=== PATIENT | male | born 1935 | race Caucasian/White ===

== ENCOUNTER 2017-07-27 20:26 | Inpatient (IN) | payer MEDICARE ==
--- NOTE | 2017-07-27 21:04 | ED Physician Chart ---
ED Chief Complaint/HPI - Patient Information Date Seen:: 07/27/17 Time Seen:: 20:15 Chief Complaint:: Agitation History of Present Illness:: onset x 3 days of agitation and hostile behavior; no report of SIs, trauma, H/As , neck pain, C/P, SOB, cough, S/T, Abd. Pain, A/N/V/D/C, fever, chills, or urinary s/s Allergies:: Allergies Allergy/AdvReac Type Severity Reaction Status Date / Time No Known Allergies Allergy Verified 07/27/17 20:53 Vitals:: Vital Signs - 8 hr 07/27/17 20:40 Temp 98.2 F HR 84 RR 18 BP 126/84 Historian:: Patient, Family Member Review:: Nurse's Note Reviewed ED Review of Systems - Review of Systems General/Constitutional: No fever, No chills, No weight loss, No weakness, No diaphoresis, No edema, No loss of appetite Skin: No skin lesions, No rash, No bruising Head: No headache, No light-headedness Eyes: No loss of vision, No pain, No diplopia ENT: No earache, No nasal drainage, No sore throat, No tinnitus Neck: No neck pain, No swelling, No thyromegaly, No stiffness, No mass noted Cardio Vascular: No chest pain, No palpitations, No PND, No orthopnea, No edema Pulmonary: No SOB, No cough, No sputum, No wheezing GI: No nausea, No vomiting, No diarrhea, No pain, No melena, No hematochezia, No constipation, No hematemesis G/U: No dysuria, No frequency, No hematuria, No nacturia Musculoskeletal: No bone or joint pain, No back pain, No muscle pain Endocrine: No polyuria, No polydipsia Psychiatric: No prior psych history, No depression, No anxiety, No suicidal ideation, No homicidal ideation, No auditory hallucination, No visual hallucination Hematopoietic: No bruising, No lymphadenopathy Allergic/Immuno: No urticaria, No angioedema Neurological: No syncope, No focal symptoms, No weakness, No paresthesia, No headache, No seizure, No dizziness, No confusion, No vertigo ED Past Medical History - Past Medical History Obtainable: Yes Past Medical History: HTN, Asthma/COPD Family History: HTN Social History: Non Smoker, No Alcohol, No Drug Use, , Care Facility Surgical History: None Psychiatricy History: None Medication: Reviewed ED Physical Exam - Physical Examination General/Constitutional: Awake, Well-developed, well-nourished, Alert, No distress, GCS 15, Non-toxic appearing, Ambulatory Head: Atraumatic Eyes: Lids, conjuctiva normal, PERRL, EOMI Skin: Nl inspection, No rash, No skin lesions, No ecchymosis, Well hydrated, No lymphadenopathy ENMT: External ears, nose nl, TM canals nl, Nasal exam nl, Lips, teeth, gums nl , Oropharynx nl, Tonsils nl Neck: Nontender, Full ROM w/o pain, No JVD, No nuchal rigidity, No bruit, No mass, No stridor Respiratory: Nl effort/Exclusion, Clear to Auscultation, No Wheeze/Rhonchi/Rales Cardio Vascular: RRR, No murmur, gallop, rubs, NL S1 S2, Carotid/Femoral/Distal pulses equal bilaterally GI: No tenderness/rebounding/guarding, No organomegaly, No hernia, Normal BS's, Nondistended, No mass/bruits, No McBurney tenderness : No CVA tenderness Extremities: No tenderness or effusion, Full ROM, normal strength in all extremities, No edema, Normal digits & nails Neuro/Psych: Alert/oriented, DTR's symmetric, Normal sensory exam, Normal motor strength, Judgement/insight normal, Mood normal, Normal gait, No focal deficits Other Neuro/Psych comments:: + Psychomotor Agitation; no SIs; Mood/Affect: Labile Misc: Normal back, No paraspinal tenderness ED Septic Shock - . Is Septic Shock (SBP<90, OR Lactate>4 mmol\L) present?: No - <6hrs of presentation: Vital Signs: Vital Signs - 8 hr 07/27/17 20:40 Temp 98.2 F HR 84 RR 18 BP 126/84 ED Reassessment (Disposition) - Diagnosis Diagnosis:: Dx: Agitation; Anxiety; Medical Clearance
[2017-07-27 21:31] LABS: EOSINOPHILE ABSOLUTE 0.1 Th/cmm (0.1-0.4); LYMPHOCYTE ABSOLUTE 1.5 Th/cmm (1.5-3.0); MONOCYTE ABSOLUTE 0.4 Th/cmm (0.3-1.0)
[2017-07-27 21:33] LABS: % BASOPHILS 0.2 % (0.0-2.0); % LYMPHOCYTES 18.6 % (20.0-50.0); % MONOCYTES 5.4 % (2.0-10.0); % NEUTROPHILS 74.8 % (40.0-80.0); HEMATOCRIT 38.3 % (41.0-60); HEMOGLOBIN 13.2 gm/dL (12-16); MEAN CORPUSCULAR HEMOGLOBIN 31.8 pg (27.0-31.0); MEAN CORPUSCULAR HGB CONC 34.6 pg (28.0-36.0); MEAN PLATELET VOLUME 6.9 fl; NEUTROPHILE ABSOLUTE 6.1 Th/cmm (1.8-8.0); PLATELET COUNT 205 Th/cmm (150-400); RED BLOOD COUNT 4.16 Mil/cmm (3.80-5.80); RED CELL DISTRIBUTION WIDTH 12.6 % (11.5-20.0); WHITE BLOOD COUNT 8.1 Th/cmm (4.8-10.8)
[2017-07-27 21:47] LABS: ALB/GLOB RATIO 1.1 (1.0-1.8); ALBUMIN 4.1 gm/dL (4.2-5.5); ALKALINE PHOSPHATASE 94 U/L (34-104); ANION GAP 9.9 (7.0-16.0); BILIRUBIN,TOTAL 0.4 mg/dL (0.3-1.0); BUN - UREA NITROGEN 22 mg/dL (7-25); CALCIUM SERUM 9.2 mg/dL (8.6-10.3); CARBON DIOXIDE 24.9 mEq/L (21.0-31.0); CHLORIDE 107 mEq/L (98-107); CHOLESTEROL 157 mg/dL (<200); CREATININE - SERUM 1.3 mg/dL (0.7-1.3); GLUCOSE 93 mg/dL (70-105); HDL -HIGH DENSITY LIPOPROTEIN 39 mg/dL (23-92); POTASSIUM SERUM 3.8 mEq/L (3.5-5.1); SGOT 14 U/L (13-39); SGPT/ALT 9 U/L (7-52); SODIUM SERUM 138 mEq/L (136-145); TOTAL PROTEIN,SERUM 7.8 gm/dL (6.0-8.3); TRIGLYCERIDES 117 mg/dL (<150)
[2017-07-27 22:00] LABS: ACETAMINOPHEN < 10.0 ug/mL (10.0-30.0); SALICYLATES (ASPIRIN) < 25.0 mg/L (30.0-100.0)
[2017-07-27 22:04] LABS: URINE MICROSCOPIC INDICATED? YES; URINE SOURCE CLEAN C
[2017-07-27 22:08] LABS: URINE BILIRUBIN NEGATIVE (NEGATIVE); URINE BLOOD TRACE (NEGATIVE); URINE GLUCOSE (UA) NEGATIVE (NEGATIVE); URINE KETONE NEGATIVE (NEGATIVE); URINE LEUKOCYTE ESTERASE NEGATIVE (NEGATIVE); URINE NITRATE NEGATIVE (NEGATIVE); URINE PROTEIN 30 mg/dL (NEGATIVE); URINE UROBILINOGEN 0.2 E.U./dL (0.2 - 1.0)
[2017-07-27 22:21] LABS: URINE COLOR YELLOW
[2017-07-27 22:22] LABS: URINE CLARITY CLEAR (CLEAR)
[2017-07-27 22:23] LABS: URINE BACTERIA NONE SEEN /hpf (NONE SEEN); URINE EPITHELIAL CELLS OCCASIONAL /lpf (FEW); URINE RBC 0-2 /hpf (0-5); URINE WBC 0-2 /hpf (0-5)
[2017-07-27 23:04] LABS: AMPHETAMINE URINE NEGATIVE (NEGATIVE); BARBITURATES URINE NEGATIVE (NEGATIVE); BENZODIAZEPINES QUAL URINE NEGATIVE (NEGATIVE); CANNABINOID THC NEGATIVE (NEGATIVE); COCAINE METABOLITE QUAL URINE NEGATIVE (NEGATIVE); METHADONE URINE NEGATIVE (NEGATIVE); METHAMPHETAMINES QUAL URINE NEGATIVE (NEGATIVE); OPIATES (MORPHINE) QUAL. URINE NEGATIVE (NEGATIVE); PHENCYCLIDINE (PCP) URINE NEGATIVE (NEGATIVE); TRICYCLICS (TCA) QUAL. URINE NEGATIVE (NEGATIVE)
[2017-07-28] MEDS ORDERED: Magnesium Hydroxide (MOM) 30 mL UDC PO PRN (10:37)
[2017-07-28] MEDS ORDERED: Maalox 30 mL Cup PO PRN (10:37)
[2017-07-28] MEDS ORDERED: Albuterol/Ipratropium Neb 3 ML AERS HHN PRN (10:54)
--- NOTE | 2017-07-28 12:46 | History & Physical ---
ADMIT DATE: 07/28/2017 CHIEF COMPLAINT: "I don't have any medical problem." HISTORY OF PRESENT ILLNESS: The patient was seen by Emergency Room ON 07/27/2017 for evaluation of agitation and hostile behavior. After being evaluated, the patient was advised to be admitted at Geropsych Unit. The patient is under care of Dr. Daley. I have been asked this patient to manage medical problems. PAST MEDICAL HISTORY: Remarkable for: 1. Hypertension. 2. DJD. 3. Asthma. 4. Obesity. MEDICATIONS AT HOME: Unknown. ALLERGIES: The patient is not allergic to medications. SOCIAL HISTORY: The patient lives by himself. The patient has no history of smoking cigarette, drinking alcohol, or using street drug use. FAMILY MEDICAL HISTORY: Remarkable for hypertension. REVIEW OF SYSTEMS: The patient currently denies any headache, blurred vision, double vision, dysphagia, odynophagia, runny nose, stuffy nose, fever, chills, cough, chest pain, shortness of breath, palpitation, dizziness, nausea, vomiting, diarrhea, dysuria, hematuria, hematochezia, melena. No seizure or syncopal episode. PHYSICAL EXAMINATION: GENERAL: The patient is alert, awake, oriented, lying in the bed without any acute distress. VITAL SIGNS: Temperature 98.2, pulse 84, respiratory rate 18, blood pressure 126/84. SKIN: Warm to touch. Adequate skin turgor. No petechia, no purpura. HEENT: Normocephalic, atraumatic. Extraocular muscles are intact. Tongue was pink and coated. Poor dentition noted. No oral lesion, no exudate. No sinus tenderness. External auditory canal and tympanic membranes are well visualized. NECK: Supple, no JVD. No hepatojugular reflex. No lymphadenopathy, thyromegaly, or carotid bruit. HEART: Both heart sounds are regular. No S3, no S4, no murmur. CHEST AND LUNGS: Equal in expansion, no wheezing, no crackles. ABDOMEN: Soft. No guarding, no rigidity. Liver and spleen not palpable. No palpable mass. EXTREMITIES: No edema, no cyanosis or clubbing. Peripheral pulses are +2. No calf tenderness noted. Diffuse osteoarthritic changes noted. NEUROLOGIC: Alert, awake, oriented to time, place, person. 2-12 cranial nerves are intact. Power in upper and lower extremities 5+. Sensation to touch intact. Babinskis in both toes are going down. No cerebral sign. AVAILABLE DIAGNOSTIC DATA: White count of 8.1, hemoglobin 13.2, platelet count 202. Chemistry panels are within normal limit. Liver functions are normal. Cholesterols are within normal limit. Albumin of 4.1. Urinalysis has a 30+ protein, RBCs were 0-2, salicylate drug screen was unremarkable. CLINICAL IMPRESSION: 1. Psychotic disorder exacerbation. 2. Hypertension. 3. Asthma. 4. Degenerative joint disease. 5. Proteinuria. 6. Obesity. PLAN: The patient's blood pressure remaining normal. We will monitor the blood pressure and blood pressure starts climbing up, we will resume antihypertensive medication. Continue to provide albuterol inhaler as needed for asthma. The patient will have repeat urinalysis and we will decide if patient needs to be further evaluation. If persistent proteinuria, the patient will require further workup. The patient's psychiatric evaluation and management has been deferred to psychiatrist. The patient is medically stable to participate in the activity per the Geropsych Unit. I sincerely thank you, Dr. Augustina Daley for giving me the opportunity to participate in patient of yours. JOB# [id number]
[2017-07-28 17:51] LABS: A1C % 5.3 % (4.0-6.0)
--- NOTE | 2017-07-29 02:12 | Psychosocial Evaluation ---
DATE OF SERVICE: PSYCHIATRIC INITIAL EVALUATION AGE: 81. SEX: Male. PHYSICIAN: Edi. CHIEF COMPLAINT: Agitation and hostile behavior. HISTORY OF PRESENT ILLNESS: The patient is an 81-year-old male, who has been agitated for the last 3 days. The patient has been restless and has been in irritable mood. The patient also has been not able to follow directions. Also, has been severely anxious. The patient was transferred to the hospital. The patient is still agitated, restless and he is unable to follow directions. PAST PSYCHIATRIC HISTORY: No known history of psychiatric problems. PAST MEDICAL HISTORY: No known major medical problems. SOCIAL HISTORY: No known alcohol or drug use. ALLERGIES: No known allergies. MENTAL STATUS EXAMINATION: The patient appears his stated age. Anxious. Irritable mood. Seems to be confused. Difficulty following directions. The patient denies hallucinations or delusions, but seems to be preoccupied. The patient denies suicidal or homicidal ideations. The patient is alert and oriented to situation and place. The patient is still unable to assess his memory at this time. Poor insight and poor judgment. ASSESSMENT: PRIMARY DIAGNOSIS: Unspecified psychosis. TREATMENT PLAN: We will monitor the patient's behavior and condition closely. Also, we will work on his irritability and agitation. Also, we will work on ineffective coping. ESTIMATED LENGTH OF STAY: 5-7 days. THE PATIENT'S STRENGTHS AND WEAKNESSES: The patient seems to be in relatively fair health. Weaknesses is his ineffective coping and his agitation. AFTER DISCHARGE PLAN: Outpatient treatment and followup. CRITERIA FOR DISCHARGE: The patient will not be psychotic and will stabilize psychotropic medications and will establish discharge plans. JOB# [id number]
[2017-07-29] MEDS: Multivitamin Tab PO SCH (08:55)
--- NOTE | 2017-07-29 23:24 | Progress Notes ---
DATE: SUBJECTIVE: The patient is still confused and disoriented. The patient also still thinks that his car is around the unit and going looking for, wants to look for his car. The patient also had a visit from his daughter last night asking his daughter to go home in a confused state. He is still disoriented, and he is still unable to make any safe plan for self-care. Also, he still had periods of agitation. ASSESSMENT: The patient is still confused. TREATMENT PLAN: Continue to monitor his behavior and his condition closely. Also, we will start Seroquel in a dose of 12.5 mg twice a day. Also, we will work on his confusion. JOB# [id number]
--- NOTE | 2017-07-30 00:01 | Progress Notes ---
DATE: SUBJECTIVE: The patient seen and examined. The patient denies any chest pain, shortness of breath, palpitation, dizziness, nausea, vomiting. PHYSICAL EXAMINATION: VITAL SIGNS: See nurse's note. HEENT: Poor dentition. NECK: Supple, no JVD. HEART: Regular, no murmur. CHEST AND LUNG: Equal in expansion, no wheezing, no crackles. ABDOMEN: Soft. No guarding, no rigidity. Bowel sounds are present. No palpable mass. EXTREMITIES: No edema. CLINICAL IMPRESSION: 1. Psychiatric disorder exacerbation. 2. Proteinuria. 3. Hypertension. 4. Degenerative joint disease. 5. Obesity. PLAN: Repeat urinalysis has been requested, which is currently pending. The patient to monitor the blood pressure along with behavior. Continue to provide symptoms management as well as medication management. We will continue to follow this patient during his stay in the hospital. [facility]# [id number]
[2017-07-30] MEDS: Multivitamin Tab PO SCH (09:24)
--- NOTE | 2017-07-30 21:02 | Progress Notes ---
DATE: SUBJECTIVE: Chart reviewed and the patient interviewed. Also discussed the patient's condition with the staff and reviewed the records and labs. The patient is still in angry and in irritable mood and he is selectively mute. The patient also is still easily agitated and he is still responding to stimuli. The patient also wants to be left alone. He is also easily agitated and irritable. Also, personal hygiene is still poor. ASSESSMENT: The patient is still agitated and confused. TREATMENT PLAN: Continue to monitor his behavior and his condition closely. Also, continue Seroquel 12.5 mg twice a day and continue adjusting psychotropic medications and followup. JOB# [id number]
[2017-07-31] MEDS: Multivitamin Tab PO SCH (10:09)
--- NOTE | 2017-07-31 19:36 | Progress Notes ---
DATE: Chart reviewed and the patient interviewed. Also discussed the patient's condition with the staff and reviewed the records and labs. The patient is still guarded and withdrawn. The patient also is still depressed. The patient also is selectively mute and still had minimal interaction with others. Otherwise, the patient is compliant with taking his medications with no side effects of Seroquel. ASSESSMENT: The patient is still depressed. TREATMENT PLAN: Continue Seroquel same dose. Also, continue adjusting psychotropic medications and working on behavioral modification. JOB# [id number]
[2017-08-01] MEDS: Multivitamin Tab PO SCH (09:38)
--- NOTE | 2017-08-01 23:33 | Progress Notes ---
DATE: PATIENT'S IDENTIFICATION: An 81-year-old male. SUBJECTIVE: The patient is seen and examined. The patient is lying in the bed. On further questioning, patient denies any chest pain, shortness of breath, palpitation, dizziness, nausea, vomiting, diarrhea. The patient is ambulatory. OBJECTIVE: On exam, VITAL SIGNS: See nurse's note. HEENT: No facial asymmetry. NECK: Supple. No JVD. HEART: Regular. CHEST AND LUNG: Equal in expansion, no wheezing, no crackles. ABDOMEN: Soft. No guarding, no rigidity. Bowel sounds present. No palpable mass. EXTREMITIES: No edema. CLINICAL IMPRESSION: 1. Hypertension. 2. Bronchial asthma. 3. Degenerative joint disease. 4. Proteinuria. 5. Obesity. 6. Psychotic disorder. PLAN: 1. The patient continues to remain normotensive. We will not receive any antihypertensive medication for now. 2. Continue p.r.n. inhalation therapy. 3. Psych medication and psych followup. 4. Repeat urinalysis is still pending. 5. Nutritional support. 6. General nursing care. 7. We will continue to follow this patient. JOB# [id number]
--- NOTE | 2017-08-02 03:37 | Progress Notes ---
DATE: 08/01/2017 Case was discussed with staff of the patient, reviewed records. The patient is an 81-year-old male who was admitted on 07/27/2017 with history of psychotic behavior, unpredictable, impulsive, needing redirection. Continues to have poor insight. Continues to be irritable. No side effects with the medication, no sedation, no nausea. The patient apparently has been restless, irritable, unable to give information regarding previous history with psychotic problem. No major problems. The patient has been compliant with the medication with no side effects, no sedation, no nausea. We will continue to work with the patient in group therapy, milieu therapy, and adjust the medication as needed. JOB# [id number]
[2017-08-02] MEDS: Multivitamin Tab PO SCH (08:35)
--- NOTE | 2017-08-02 23:24 | Progress Notes ---
DATE: 08/02/2017 SUBJECTIVE: The patient is seen and examined. The patient is lying in the bed. The patient denies any chest pain, shortness of breath, palpitation, dizziness, nausea, vomiting, diarrhea. OBJECTIVE: On exam, VITAL SIGNS: Temperature 98, pulse is 64, respiratory rate 18, blood pressure 143/84. HEENT: Tongue is pink and coated. No facial asymmetry. Extraocular muscles are intact. NECK: Supple, no lymphadenopathy or thyromegaly. HEART: Regular, no murmur. CHEST AND LUNG: Equal in expansion, no expiratory wheezing. ABDOMEN: Soft. No guarding, no rigidity. Bowel sounds are present. No palpable mass. EXTREMITIES: No edema. NEUROLOGIC: Nonfocal. CLINICAL IMPRESSION: 1. Hypertension. 2. History of asthma. 3. Degenerative joint disease. 4. Psychotic disorder. 5. High risk for fall. PLAN: Continue to follow. Monitor blood pressure. Continue to provide p.r.n. inhalation therapy. Psychiatric medication and management deferred to psychiatrist. The patient's symptoms management along with medication management, general nursing care, nutritional support. Care plan reviewed. JOB# [id number]
--- NOTE | 2017-08-03 00:46 | Progress Notes ---
DATE: 08/02/2017 Case was discussed with staff of the patient, reviewed records. The patient continues to be guarded, withdrawn. The patient is to be depressed, continues to be selectively mute at times, poor interaction with other. He continues to be depressed. He is compliant with the medication with no side effects, no sedation, no nausea, no extrapyramidal symptoms. He is on Seroquel 12.5 mg twice a day and with no side effects. We will continue to work with the patient in group therapy, milieu therapy, and adjust the medication as needed. JOB# [id number]
[2017-08-03] MEDS: Multivitamin Tab PO SCH (08:28)
[2017-08-04] MEDS: Multivitamin Tab PO SCH (10:06)
--- NOTE | 2017-08-04 10:15 | Progress Notes ---
DATE: 08/03/2017 SUBJECTIVE: Chart reviewed and the patient interviewed. Also, discussed the patient's condition with the staff and reviewed records and labs. The patient is still confused and anxious. The patient also still has difficulty expressing himself and expressing his feelings. Also, is still withdrawn and interacting minimally with others. Also, needs a lot of redirections. Otherwise, the patient is compliant with taking medications with no side effect of medications. ASSESSMENT: The patient is still confused and considered to be gravely disabled. TREATMENT PLAN: Continue to monitor his behavior and his condition closely. Also, continue to work on his ineffective coping as well as on discharge plans and placement issue. JOB# [id number]
[2017-08-05] MEDS: Multivitamin Tab PO SCH (09:28)
--- NOTE | 2017-08-05 15:37 | Progress Notes ---
DATE: 08/04/2017 SUBJECTIVE: Chart reviewed and the patient interviewed. Also, discussed the patient's condition with the staff and reviewed records and labs. The patient is still agitated and is still easily irritable and in angry mood. The patient also has difficulty following staff directions. The patient also still has a tendency to hitting others which is the same behavior that he was doing at home, but at the same time seems to be less than before and slightly easier to redirect him. Otherwise, the patient is compliant with taking his medications with no side effects of medications. I spoke with the patient's daughter today and discussed with her further treatment plans and further treatment options and also placement issue. The patient prefers if the patient can be placed close to her home and we will try to do so. At the same time, we will continue Seroquel in a dose of 12.5 mg twice a day and will continue to follow up closely. JOB# [id number]
[2017-08-06] MEDS: Multivitamin Tab PO SCH (09:13)
--- NOTE | 2017-08-06 20:00 | Progress Notes ---
DATE: 08/06/[address] Daley. SUBJECTIVE: Case was discussed with staff of the patient, reviewed records. The patient continues to be easily agitated, irritable and angry. Continues to have difficulty following with staff's redirection. Continues to have a tendency of hitting others. He continues to be unpredictable, poor insight. He is compliant with the medication with no side effects. The staff is working on placement for this patient and the daughter wanting to live close to home. No side effects with the medication, no sedation, no nausea, no extrapyramidal symptoms and we will continue to work with the patient in group therapy, milieu therapy, and adjust medications as needed. JOB# [id number]
--- NOTE | 2017-08-07 03:37 | Progress Notes ---
DATE: 08/05/2017 SUBJECTIVE: Chart reviewed and the patient interviewed. Also discussed the patient's condition with the staff and reviewed records and labs. The patient is calm and is withdrawn. The patient is still guarded. The patient also still forgetful and confused and still have episodes of agitation and irritability, but seems to be less. He also is interacting more appropriately. He denies any side effects of Seroquel. ASSESSMENT: The patient is still depressed and is still having episodes of agitations. TREATMENT PLAN: Continue monitoring his behavior and his condition. Also, continue to work with the patient's daughter as well as case resolution specialist in regard to discharge plans and placement issue. JOB# [id number]
[2017-08-07] MEDS: Multivitamin Tab PO SCH (09:17)
--- NOTE | 2017-08-07 20:18 | Progress Notes ---
DATE: 08/07/2017 Case was discussed with staff of the patient, reviewed records, reviewed medication list. The patient continues to be easily agitated, irritable, angry. Continues to have difficulty following with staff's direction. Continues to have a tendency to sometimes hits others, unpredictable and impulsive. He is compliant with the medication with no side effects. He continues to have poor insight poor about the whole process. No side effects with the medication, no sedation, no nausea, no extrapyramidal symptoms. The patient is referred because of his age and medications. We will continue to work with the patient in group therapy, milieu therapy, and adjust medications as needed. JOB# [id number]
--- NOTE | 2017-08-08 07:07 | Progress Notes ---
DATE: 08/08/2017 SUBJECTIVE: Chart reviewed and the patient interviewed. Also discussed the patient's condition with the staff and reviewed records and labs. The patient is still depressed and seems to be confused. The patient also is withdrawn and interacting minimally with others. The patient denies any thoughts of suicide or homicide. Flat affect. Otherwise, the patient is compliant with taking his medications with no side effects of medications. ASSESSMENT: The patient seems to be calmer, but still depressed and slightly confused. TREATMENT PLAN: Continue monitoring his behavior and his condition closely. Also, continue to work with the patient's daughter and bilingual case manager in regard to the discharge plans and placement issue and we will continue to follow up. JOB# [id number]
[2017-08-08] MEDS: Multivitamin Tab PO SCH (09:32)
--- NOTE | 2017-08-08 20:33 | Progress Notes ---
DATE: 08/08/2017 The patient seen and examined. The patient is ambulatory. The patient had a low grade temperature. The patient has no chest pain, short of breath, palpitation. PHYSICAL EXAMINATION: VITAL SIGNS: Temperature 99.1, pulse is 70, respiratory rate is 18, blood pressure 106/72. HEENT: Poor dentition. NECK: Supple, no JVD. HEART: Regular. CHEST: Lung equal in expansion, no expiratory wheezing. ABDOMEN: Soft. No guarding, no rigidity. Bowel sounds are present. No palpable mass. EXTREMITIES: No edema. Diffuse osteoarthritic changes noted. CLINICAL IMPRESSION: 1. Hypertension. 2. Asthma. 3. Low grade fever. 4. Degenerative joint disease. 5. Psychotic disorder. 6. Obesity. PLAN: 1. Monitor blood pressure. 2. Continue to use p.r.n. inhalation therapy. 3. Psych medication. 4. If continues to spike fever, we will do the further workup. 5. Follow up lab has been requested. 6. Fall precautions. 7. Care plan reviewed and discussed with staff. JOB# [id number]
[2017-08-09 06:15] LABS: % BASOPHILS 0.9 % (0.0-2.0); % EOSINOPHILS 1.5 % (0.0-5.0); % LYMPHOCYTES 22.4 % (20.0-50.0); % MONOCYTES 7.4 % (2.0-10.0); % NEUTROPHILS 67.8 % (40.0-80.0); BASOPHILE ABSOLUTE 0.1 Th/cumm (0-0.2); EOSINOPHILE ABSOLUTE 0.1 Th/cmm (0.1-0.4); HEMATOCRIT 40.1 % (41.0-60); HEMOGLOBIN 13.3 gm/dL (12-16); LYMPHOCYTE ABSOLUTE 1.7 Th/cmm (1.5-3.0); MEAN CELL VOLUME 93.2 fl (80-99); MEAN CORPUSCULAR HEMOGLOBIN 30.9 pg (27.0-31.0); MEAN CORPUSCULAR HGB CONC 33.2 pg (28.0-36.0); MONOCYTE ABSOLUTE 0.6 Th/cmm (0.3-1.0); PLATELET COUNT 200 Th/cmm (150-400); RED CELL DISTRIBUTION WIDTH 12.5 % (11.5-20.0); WHITE BLOOD COUNT 7.5 Th/cmm (4.8-10.8)
[2017-08-09 06:34] LABS: ALB/GLOB RATIO 1.2 (1.0-1.8); ALBUMIN 3.9 gm/dL (4.2-5.5); ALKALINE PHOSPHATASE 72 U/L (34-104); BILIRUBIN,TOTAL 0.5 mg/dL (0.3-1.0); BUN - UREA NITROGEN 25 mg/dL (7-25); CALCIUM SERUM 9.5 mg/dL (8.6-10.3); CARBON DIOXIDE 25.1 mEq/L (21.0-31.0); CHLORIDE 103 mEq/L (98-107); CREATININE - SERUM 1.4 mg/dL (0.7-1.3); GLUCOSE 91 mg/dL (70-105); POTASSIUM SERUM 4.1 mEq/L (3.5-5.1); SGOT 14 U/L (13-39); SGPT/ALT 10 U/L (7-52); SODIUM SERUM 135 mEq/L (136-145); TOTAL PROTEIN,SERUM 7.3 gm/dL (6.0-8.3)
--- NOTE | 2017-08-09 07:42 | Progress Notes ---
DATE: SUBJECTIVE: Chart reviewed and the patient interviewed. Also discussed the patient's condition with the staff and reviewed records and labs. The patient is still confused and is still anxious. The patient also is still guarded and his affect is flat most of the time with minimum interaction. He also is compliant with taking his medications with no side effect of medications. ASSESSMENT: The patient is compliant with taking his medication and seems to be calmer. TREATMENT PLAN: Continue to monitor his behavior and working on discharge plans and working with the daughter and business case analyst in regard to discharge plans and hopefully if the patient will be accepted the patient, we will discharge him today with outpatient treatment and followup. JOB# [id number]
[2017-08-09] MEDS: Multivitamin Tab PO SCH (09:37)
--- NOTE | 2017-08-10 21:36 | Discharge Summary ---
DATE OF DISCHARGE: 08/09/2017 PATIENT'S AGE: 81. SEX: Male. PHYSICIAN: Augustina Daley MD, MPH FINAL DIAGNOSIS: PRIMARY DIAGNOSIS: Unspecified psychosis. SECONDARY DIAGNOSES: Dementia, moderate, with psychotic features. REASON FOR HOSPITALIZATION: The patient was admitted to the hospital because of agitation for 3 days prior to his admission and he was restless and has irritable mood and confused. HOSPITAL COURSE: The patient continued to be irritable and agitated. The patient also was psychotic. Also, was withdrawn. Interacts minimally with peers and with others. The patient was given Seroquel in a dose of 12.5 mg at bedtime that helped patient to be calmer. Placement was an issue. I spoke with the patient's daughter and she found [facility] to be a good place for the patient and the patient was discharged there. Physical exam of the patient showed the patient had no major medical problems in the hospital. The patient was monitored closely in the hospital. AFTER DISCHARGE PLANS: The patient discharged from the hospital and went to [facility] with plans to follow him up there. EXPECTED OUTCOME AFTER DISCHARGE: Fair, if the patient continued to take her psychotropic medications and follow up with discharge plans. JOB# [id number]
== END 2017-08-09 16:30 | DRG 885 ==
LOC: ER 20:26 → GERO2 23:45
PROVIDERS: ADMIT Psychiatry & Neurology Psychiatry; ATTEND Psychiatry & Neurology Psychiatry
DX: F29 Unspecified psychosis not due to a substance or known physiological condition (principal); F03.90 Unspecified dementia, unspecified severity, without behavioral disturbance, psychotic disturbance, mood disturbance, and anxiety; I10 Essential (primary) hypertension; M19.90 Unspecified osteoarthritis, unspecified site; J45.909 Unspecified asthma, uncomplicated; E66.9 Obesity, unspecified; R80.9 Proteinuria, unspecified; F41.9 Anxiety disorder, unspecified; Z91.81 History of falling; Z68.25 Body mass index [BMI] 25.0-25.9, adult; Z82.49 Family history of ischemic heart disease and other diseases of the circulatory system
CPT/HCPCS: 36415-UA; 80053-TC; 80061-TC; 80307; 80320-TC; 80329-TC; 81001-TC; 83036-90; 84443-TC; 84484-TC; 85025-TC; 86592-TC; 93005; 94640; 94760; G0410; Z7610

== ENCOUNTER 2018-02-18 18:31 | Inpatient (IN) | payer MEDICARE ==
[2018-02-18 19:21] LABS: % BASOPHILS 0.7 % (0.0-2.0); % EOSINOPHILS 2.2 % (0.0-5.0); % MONOCYTES 6.4 % (2.0-10.0); % NEUTROPHILS 74.7 % (40.0-80.0); BASOPHILE ABSOLUTE 0.1 Th/cumm (0-0.2); EOSINOPHILE ABSOLUTE 0.2 Th/cmm (0.1-0.4); HEMATOCRIT 43.8 % (41.0-60); HEMOGLOBIN 14.2 gm/dL (12-16); LYMPHOCYTE ABSOLUTE 1.3 Th/cmm (1.5-3.0); MEAN CELL VOLUME 89.1 fl (80-99); MEAN CORPUSCULAR HGB CONC 32.5 pg (28.0-36.0); MEAN PLATELET VOLUME 7.2 fl; MONOCYTE ABSOLUTE 0.5 Th/cmm (0.3-1.0); NEUTROPHILE ABSOLUTE 5.8 Th/cmm (1.8-8.0); PLATELET COUNT 179 Th/cmm (150-400); RED BLOOD COUNT 4.91 Mil/cmm (3.80-5.80); RED CELL DISTRIBUTION WIDTH 12.8 % (11.5-20.0); WHITE BLOOD COUNT 7.9 Th/cmm (4.8-10.8)
[2018-02-18 19:27] LABS: INR 0.94 (0.5-1.4); PROTHROMBIN TIME (TEST) 9.8 SECONDS (9.5-11.5)
[2018-02-18 19:31] LABS: ALB/GLOB RATIO 0.9 (1.0-1.8); ALBUMIN 3.9 gm/dL (4.2-5.5); ALKALINE PHOSPHATASE 79 U/L (34-104); BILIRUBIN,TOTAL 0.4 mg/dL (0.3-1.0); BUN - UREA NITROGEN 24 mg/dL (7-25); CALCIUM SERUM 9.5 mg/dL (8.6-10.3); CARBON DIOXIDE 23.8 mEq/L (21.0-31.0); CHLORIDE 104 mEq/L (98-107); CREATININE - SERUM 1.5 mg/dL (0.7-1.3); GLUCOSE 150 mg/dL (70-105); POTASSIUM SERUM 3.8 mEq/L (3.5-5.1); SGOT 16 U/L (13-39); SGPT/ALT 14 U/L (7-52); SODIUM SERUM 137 mEq/L (136-145); TOTAL PROTEIN,SERUM 8.2 gm/dL (6.0-8.3)
--- NOTE | 2018-02-18 20:19 | ED Physician Chart ---
ED Chief Complaint/HPI - Patient Information Date Seen:: 02/18/18 Time Seen:: 19:00 Chief Complaint:: dizzziness and confused History of Present Illness:: this is an 82 yo male bib the daughter for an evaluation and treatment for his confusion and dizziness. she states that she is bringing him for placement. the patient is demented and has no insight. Allergies:: Allergies Allergy/AdvReac Type Severity Reaction Status Date / Time No Known Allergies Allergy Verified 02/18/18 18:49 Vitals:: Vital Signs - 8 hr 02/18/18 02/18/18 18:49 19:33 Temp 97.9 F 97.8 F HR 87 78 RR 18 18 BP 122/84 118/78 O2 Sat % 97 98 Historian:: Family Member (daughter) Review:: Nurse's Note Reviewed, Old Chart Reviewed, Transfer documents Reviewed ED Review of Systems - Review of Systems General/Constitutional: No fever, No chills, No weight loss, No weakness, No diaphoresis, No edema, No loss of appetite, Other (this patient is unable to give a review of systems.) Skin: No skin lesions, No rash, No bruising Head: No headache, No light-headedness Eyes: No loss of vision, No pain, No diplopia ENT: No earache, No nasal drainage, No sore throat, No tinnitus Neck: No neck pain, No swelling, No thyromegaly, No stiffness, No mass noted Cardio Vascular: No chest pain, No palpitations, No PND, No orthopnea, No edema Pulmonary: No SOB, No cough, No sputum, No wheezing GI: No nausea, No vomiting, No diarrhea, No pain, No melena, No hematochezia, No constipation, No hematemesis G/U: No dysuria, No frequency, No hematuria Musculoskeletal: No bone or joint pain, No back pain, No muscle pain Endocrine: No polyuria, No polydipsia Psychiatric: No prior psych history, No depression, No anxiety, No suicidal ideation Hematopoietic: No bruising, No lymphadenopathy Allergic/Immuno: No urticaria, No angioedema Neurological: No syncope, No focal symptoms, No weakness, No paresthesia, No headache, No seizure, No dizziness, No confusion, No vertigo ED Past Medical History - Past Medical History Obtainable: Yes Past Medical History: HTN, CHF, Asthma/COPD, Arthritis, Dementia, Other (aortic aneurysm) Family History: None Social History: Non Smoker, No Alcohol, No Drug Use, Single Surgical History: None Psychiatricy History: Dementia Medication: Reviewed Family Medical History - Family Member Mother History Unknown: Yes ED Physical Exam - Physical Examination General/Constitutional: Awake, Well-developed, well-nourished, Alert, No distress, GCS 15, Non-toxic appearing, Ambulatory Other Gen/Cons comments:: disoriented times four Head: Atraumatic Eyes: Lids, conjuctiva normal, PERRL, EOMI Skin: Nl inspection, No rash, No skin lesions, No ecchymosis, Well hydrated, No lymphadenopathy ENMT: External ears, nose nl, Nasal exam nl, Lips, teeth, gums nl Neck: Nontender, Full ROM w/o pain, No JVD, No nuchal rigidity, No bruit, No mass, No stridor Respiratory: Nl effort/Exclusion, Clear to Auscultation, No Wheeze/Rhonchi/Rales Cardio Vascular: RRR, No murmur, gallop, rubs, NL S1 S2 GI: No tenderness/rebounding/guarding, No organomegaly, No hernia, Normal BS's, Nondistended, No mass/bruits, No McBurney tenderness : No CVA tenderness Extremities: No tenderness or effusion, Full ROM, normal strength in all extremities, No edema, Normal digits & nails Neuro/Psych: Alert/oriented, DTR's symmetric, Normal sensory exam, Normal motor strength, Judgement/insight normal (poor insight and judgement), Mood normal, Normal gait, No focal deficits Misc: Normal back, No paraspinal tenderness ED Labs/Radiology/EKG Results - Lab Results Results: Laboratory Tests 02/18/18 02/18/18 02/18/18 19:10 19:10 19:10 WBC 7.9 RBC 4.91 Hgb 14.2 Hct 43.8 MCV 89.1 MCH 29.0 MCHC Differential 32.5 RDW 12.8 Plt Count 179 MPV 7.2 Neutrophils % 74.7 Lymphocytes % 16.0 L Monocytes % 6.4 Eosinophils % 2.2 Basophils % 0.7 PT 9.8 INR 0.94 PTT (Actin FS) 28.7 Sodium 137 Potassium 3.8 Chloride 104 Carbon Dioxide 23.8 Anion Gap 13.0 BUN 24 Creatinine 1.5 H Est GFR ( Amer) TNP Est GFR (Non-Af Amer) TNP BUN/Creatinine Ratio 16.0 Glucose 150 H Calcium 9.5 Total Bilirubin 0.4 AST 16 ALT 14 Alkaline Phosphatase 79 Troponin I Total Protein 8.2 Albumin 3.9 L Globulin 4.3 Albumin/Globulin Ratio 0.9 L 02/18/18 19:10 WBC RBC Hgb Hct MCV MCH MCHC Differential RDW Plt Count MPV Neutrophils % Lymphocytes % Monocytes % Eosinophils % Basophils % PT INR PTT (Actin FS) Sodium Potassium Chloride Carbon Dioxide Anion Gap BUN Creatinine Est GFR ( Amer) Est GFR (Non-Af Amer) BUN/Creatinine Ratio Glucose Calcium Total Bilirubin AST ALT Alkaline Phosphatase Troponin I 0.01 Total Protein Albumin Globulin Albumin/Globulin Ratio - Radiology Results Results: chest x-ray = nad - EKG Interpretations EKG Time:: 19:29 Rate & Rhythm: rate =82, sinus [place]: right axis ED Septic Shock - . Is Septic Shock (SBP<90, OR Lactate>4 mmol\L) present?: No - <6hrs of presentation: Vital Signs: Vital Signs - 8 hr 02/18/18 02/18/18 18:49 19:33 Temp 97.9 F 97.8 F HR 87 78 RR 18 18 BP 122/84 118/78 O2 Sat % 97 98 ED Reassessment (Disposition) - Reassessment Reassessment Condition:: Unchanged - Diagnosis Diagnosis:: psychotic demented - Patient Disposition Discharge/Transfer:: Acute Care w/in this hosp Admitting Medical Physician:: Jaycob Lynn Admitting Psych Physician:: Augustina Daley Condition at Disposition:: Unchanged
[2018-02-18 20:32] LABS: URINE SOURCE CLEAN C
[2018-02-18 20:35] LABS: URINE BILIRUBIN NEGATIVE (NEGATIVE); URINE BLOOD NEGATIVE (NEGATIVE); URINE GLUCOSE (UA) NEGATIVE (NEGATIVE); URINE KETONE NEGATIVE (NEGATIVE); URINE LEUKOCYTE ESTERASE NEGATIVE (NEGATIVE); URINE MICROSCOPIC INDICATED? YES; URINE NITRATE NEGATIVE (NEGATIVE); URINE PROTEIN TRACE mg/dL (NEGATIVE); URINE UROBILINOGEN 0.2 E.U./dL (0.2 - 1.0)
[2018-02-18 21:11] LABS: URINE CLARITY CLEAR (CLEAR); URINE COLOR YELLOW
[2018-02-18 21:33] LABS: URINE BACTERIA FEW /hpf (NONE SEEN); URINE EPITHELIAL CELLS FEW /lpf (FEW); URINE RBC 0-2 /hpf (0-5); URINE WBC 0-2 /hpf (0-5)
[2018-02-19 00:19] VITALS: BP 140/72
[2018-02-19] MEDS ORDERED: Magnesium Hydroxide (MOM) 30 mL UDC PO PRN ×2 (00:48→11:31)
[2018-02-19] MEDS ORDERED: Maalox 30 mL Cup PO PRN ×2 (00:48→11:31)
[2018-02-19 01:51] LABS: CHOLESTEROL 164 mg/dL (<200); HDL -HIGH DENSITY LIPOPROTEIN 35 mg/dL (23-92); TRIGLYCERIDES 115 mg/dL (<150)
[2018-02-19] MEDS ORDERED: Albuterol/Ipratropium Neb 3 ML AERS HHN PRN (07:39)
[2018-02-19] MEDS ORDERED: Multivitamin Tab PO SCH (09:00)
--- NOTE | 2018-02-19 09:18 | Diagnostic Imaging Report ---
CT scan of the brain without intravenous contrast HISTORY: Syncope Total DLP equals 832 CTDI equals 42.0 Axial sections were obtained from the base of the skull to the vertex. There is prominence/enlargement of the ventricular system size. Associated enlargement of cerebral sulci and subarachnoid cisterns. Findings are consistent with changes of generalized cerebral atrophy. No acute parenchymal abnormalities. No acute cerebral hemorrhage. Hypodensity is seen within the supratentorial white matter regions without mass effect. The findings may be associated with chronic small vessel ischemic disease. No extra-axial masses or abnormal fluid collections. IMPRESSION: 1. No acute abnormalities 2. Cerebral atrophy 3. Supratentorial white matter changes that may reflect chronic small vessel ischemic disease
--- NOTE | 2018-02-19 09:21 | Diagnostic Imaging Report ---
Portable chest x-ray HISTORY: Shortness of breath Overall heart size difficult to assess due to poor inspiration, but appears generous. Atherosclerotic calcination seen in the aorta. No acute focal pulmonary processes. IMPRESSION: 1. No acute focal pulmonary processes 2. Atherosclerotic vascular changes
--- NOTE | 2018-02-19 12:59 | History & Physical ---
ADMIT DATE: 02/18/2018 IDENTIFYING INFORMATION: The patient is an 82-year-old male. CHIEF COMPLAINT: No answer. HISTORY OF PRESENT ILLNESS: The patient was brought by his daughter for admission because of dementia, psychosis, agitation. The patient was a poor historian. He was unable to tell me the date, where he is, why he is here. He was surprised on telling him he was in the hospital. He denies feeling depressed or anxious. He denies any intent to harm himself or anybody; however, when asked if he is , he said yes for a long time and that he has 2 children, could not tell me the ages, 2 boys, 2 girls. 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 Denies substance abuse. PAST PSYCHIATRIC HISTORY: Dementia and psychosis. MEDICAL HISTORY: Hypertension, congestive heart failure, COPD, arthritis, history of aortic aneurysm. According to records, no history of substance abuse. ALLERGIES: The patient has no known drug allergy. MEDICATIONS: The patient was initiated on Seroquel 12.5 mg twice a day by Dr. Daley. FAMILY AND SOCIAL HISTORY: The patient reported that he is . He is not sure where he lives. He has 4 children. Unable to tell me their ages. He said he has high school education, worked as a welder/fitter. Denies substance abuse according to the family. No signs of substance abuse. MENTAL STATUS EXAMINATION: The patient is appropriately dressed. He is in a wheelchair, who is alert. He was unable to tell me his age, where he is, why he is here, unable to tell me how old he is, sleeping and eating. He is unable to tell me if he is depressed. He said he is not sad. He denies any current intent to harm himself. Denies any auditory or visual hallucination or paranoia. assisted is poor, cannot remember his age, date of , recent memory. He does not know why he is here. Did not even know he was in the hospital. He is confused and demented. According to the family, he has been easily agitated and his insight about his illness is poor. Does not know he is a problem. Judgment is poor because of dementia. IMPRESSION: Psychosis, not otherwise specified, dementia. MEDICAL DIAGNOSES: As per medical doctor. PLAN: The patient is on Seroquel. He may need medications for dementia. We will give one medication at a time. We will do group therapy and milieu therapy. ESTIMATED LENGTH OF STAY: 3-7 days. DISCHARGE CRITERIA: Feeling better, less agitated after discharge. JOB# [id number]
--- NOTE | 2018-02-19 13:02 | Internal Medicine Prog Note ---
Internal Medicine Subjective - Subjective Service Date: 02/19/18 Patient seen and examined:: without staff Patient is:: awake, verbal, interactive, in wheelchair Patient Complaints of:: congestion Per staff patient has:: no adverse event Internal Medicine Objective - Results Result Diagrams: 02/18/18 19:10 02/18/18 19:10 Recent Labs: Laboratory Last Values WBC 7.9 Th/cmm (4.8-10.8) 02/18/18 19:10 RBC 4.91 Mil/cmm (3.80-5.80) 02/18/18 19:10 Hgb 14.2 gm/dL (12-16) 02/18/18 19:10 Hct 43.8 % (41.0-60) 02/18/18 19:10 MCV 89.1 fl (80-99) 02/18/18 19:10 MCH 29.0 pg (27.0-31.0) 02/18/18 19:10 MCHC Differential 32.5 pg (28.0-36.0) 02/18/18 19:10 RDW 12.8 % (11.5-20.0) 02/18/18 19:10 Plt Count 179 Th/cmm (150-400) 02/18/18 19:10 MPV 7.2 fl 02/18/18 19:10 Neutrophils % 74.7 % (40.0-80.0) 02/18/18 19:10 Lymphocytes % 16.0 % (20.0-50.0) L 02/18/18 19:10 Monocytes % 6.4 % (2.0-10.0) 02/18/18 19:10 Eosinophils % 2.2 % (0.0-5.0) 02/18/18 19:10 Basophils % 0.7 % (0.0-2.0) 02/18/18 19:10 PT 9.8 SECONDS (9.5-11.5) 02/18/18 19:10 INR 0.94 (0.5-1.4) 02/18/18 19:10 PTT (Actin FS) 28.7 SECONDS (26.0-38.0) 02/18/18 19:10 Sodium 137 mEq/L (136-145) 02/18/18 19:10 Potassium 3.8 mEq/L (3.5-5.1) 02/18/18 19:10 Chloride 104 mEq/L (98-107) 02/18/18 19:10 Carbon Dioxide 23.8 mEq/L (21.0-31.0) 02/18/18 19:10 Anion Gap 13.0 (7.0-16.0) 02/18/18 19:10 BUN 24 mg/dL (7-25) 02/18/18 19:10 Creatinine 1.5 mg/dL (0.7-1.3) H 02/18/18 19:10 Est GFR ( Amer) TNP 02/18/18 19:10 Est GFR (Non-Af Amer) TNP 02/18/18 19:10 BUN/Creatinine Ratio 16.0 02/18/18 19:10 Glucose 150 mg/dL (70-105) H 02/18/18 19:10 Calcium 9.5 mg/dL (8.6-10.3) 02/18/18 19:10 Total Bilirubin 0.4 mg/dL (0.3-1.0) 02/18/18 19:10 AST 16 U/L (13-39) 02/18/18 19:10 ALT 14 U/L (7-52) 02/18/18 19:10 Alkaline Phosphatase 79 U/L (34-104) 02/18/18 19:10 Troponin I 0.01 ng/mL (0.01-0.05) 02/18/18 19:10 Total Protein 8.2 gm/dL (6.0-8.3) 02/18/18 19:10 Albumin 3.9 gm/dL (4.2-5.5) L 02/18/18 19:10 Globulin 4.3 gm/dL 02/18/18 19:10 Albumin/Globulin Ratio 0.9 (1.0-1.8) L 02/18/18 19:10 Triglycerides 115 mg/dL (<150) 02/19/18 00:50 Cholesterol 164 mg/dL (<200) 02/19/18 00:50 LDL Cholesterol Direct 133 mg/dL (75-193) 02/19/18 00:50 HDL Cholesterol 35 mg/dL (23-92) 02/19/18 00:50 TSH 1.24 uIU/ml (0.34-5.60) 02/18/18 19:10 Urine Source CLEAN C 02/18/18 20:09 Urine Color YELLOW 02/18/18 20:09 Urine Clarity CLEAR (CLEAR) 02/18/18 20:09 Urine pH 6.0 (4.6 - 8.0) 02/18/18 20:09 Ur Specific [place] 1.015 (1.005-1.030) 02/18/18 20:09 Urine Protein TRACE mg/dL (NEGATIVE) 02/18/18 20:09 Urine Glucose (UA) NEGATIVE mg/dL (NEGATIVE) 02/18/18 20:09 Urine Ketones NEGATIVE mg/dL (NEGATIVE) 02/18/18 20:09 Urine Blood NEGATIVE (NEGATIVE) 02/18/18 20:09 Urine Nitrate NEGATIVE (NEGATIVE) 02/18/18 20:09 Urine Bilirubin NEGATIVE (NEGATIVE) 02/18/18 20:09 Urine Urobilinogen 0.2 E.U./dL (0.2 - 1.0) 02/18/18 20:09 Ur Leukocyte Esterase NEGATIVE (NEGATIVE) 02/18/18 20:09 Urine RBC 0-2 /hpf (0-5) H 02/18/18 20:09 Urine WBC 0-2 /hpf (0-5) 02/18/18 20:09 Ur Epithelial Cells FEW /lpf (FEW) 02/18/18 20:09 Urine Bacteria FEW /hpf (NONE SEEN) 02/18/18 20:09 Urine Mucus FEW /lpf (FEW) 02/18/18 20:09 - Physical Exam Vitals and I&O: Vital Signs Temp 98.7 F 02/19/18 06:07 Pulse 68 02/19/18 08:04 Resp 18 02/19/18 08:11 BP 98/63 02/19/18 06:07 Pulse Ox 94 02/19/18 08:04 Intake & Output 02/18/18 02/19/18 02/19/18 18:59 06:59 18:59 Intake Total 120 Balance 120 Weight (lbs) 90.718 kg Intake: Oral 120 Other: # Voids 2 Weight Source Estimated Active Medications: Current Medications Acetaminophen (Tylenol) 650 mg PO Q4HR PRN PRN Reason: Mild Pain / Temp above 100 Stop: 04/20/18 11:30 Al Hydrox/Mg Hydrox/Simethicone (Maalox) 30 ml PO Q4HR PRN PRN Reason: GI DISTRESS Stop: 04/20/18 11:30 Albuterol/Ipratropium (Duoneb Neb) 3 ml HHN Q4HRT PRN PRN Reason: Wheezing Stop: 04/20/18 07:38 Lorazepam (Ativan) 0.5 mg PO Q6HR PRN; Protocol PRN Reason: Anxiety Stop: 04/20/18 11:30 Magnesium Hydroxide (Milk Of Magnesia) 30 ml PO HS PRN PRN Reason: Constipation Stop: 04/20/18 11:30 Multivitamins/Vitamin C (Theragran) 1 tab PO DAILY HERMILA Stop: 04/21/18 08:59 Quetiapine Fumarate (Seroquel) 12.5 mg PO BID HERMILA; Protocol Stop: 04/20/18 08:59 Last Admin: 02/19/18 09:35 Dose: 12.5 mg Zolpidem Tartrate (Ambien) 5 mg PO HSMR1 PRN PRN Reason: Insomnia Stop: 04/20/18 00:47 General: weak, lethargic, demented HEENT: NC/AT, PERRLA, EOMI Neck: Supple, No JVD, No thyromegaly, +2 carotid pulse wo bruit Lungs: wheezing Cardiovascular: RRR, Normal S1, without murmur Abdomen: soft, non-tender, non-distended Extremities: clear Internal Medicine Assmt/Plan - Assessment Assessment: Copd: RT protocol. ALOC: observe. CHF: BNP in AM Psychosis: monitoring and adjusting meds. CONNER: try to avoid nephrotoxic med. h/o HTN: controlled.
--- NOTE | 2018-02-19 15:44 | History & Physical ---
ADMIT DATE: 02/18/2018 CHIEF COMPLAINT: Confusion and worsening agitation by the family member. HISTORY OF PRESENT ILLNESS: The patient is an 82-year-old male admitted from the Emergency Room to [facility]. I was asked by the patient's daughter, who picked the patient as a primary care physician. Apparently, the patient was in his usual state of health until just a few days ago, he became more confused and agitated with acute psychotic episodes. The daughter was worried and she brought the patient to the Emergency Room. PAST MEDICAL HISTORY: Including COPD, congestive heart failure, dementia, questionable Alzheimer's disease, psychosis, agitation and questionable aortic aneurysm. PAST SURGICAL HISTORY: This cannot be reliably obtained. REVIEW OF SYSTEMS: As per HPI. PHYSICAL EXAMINATION: GENERAL: Well-developed female in no acute distress. SKIN: Warm and dry. VITAL SIGNS: Basically stable. HEENT: Normocephalic, atraumatic. Pupils equal, round, react to light and accommodation. CHEST: Symmetrical. LUNGS: Few wheezing appreciated. CARDIAC: Normal sinus rhythm. S1, S2. ABDOMEN: Benign, soft, nontender. EXTREMITIES: No clubbing, cyanosis or edema. Bilateral feet are quite clean. NEUROLOGICAL: Unremarkable. LABORATORY DATA: Reviewed. Significant for elevated creatinine of 1.5, glucose of 160. ASSESSMENT AND PLAN: 1. Altered level of consciousness: Probably due to metabolic encephalopathy and dementia. 2. History of hypertension, controlled. 3. History of chronic obstructive pulmonary disease and asthma: RT protocol. 4. Congestive heart failure by history: We will observe closely and adjust medication as needed. 5. Acute kidney injury: Avoid nephrotoxic medications if possible. 6. Anxiety: Ativan p.r.n. 7. Acute psychosis: Adjust medication as needed. 8. Questionable history of aortic aneurysm. 9. DVT prophylaxis. JOB# [id number]
[2018-02-20 06:48] LABS: ANION GAP 11.7 (7.0-16.0); BUN - UREA NITROGEN 24 mg/dL (7-25); CALCIUM SERUM 9.3 mg/dL (8.6-10.3); CARBON DIOXIDE 24.4 mEq/L (21.0-31.0); CHLORIDE 107 mEq/L (98-107); CREATININE - SERUM 1.4 mg/dL (0.7-1.3); GLUCOSE 93 mg/dL (70-105); POTASSIUM SERUM 4.1 mEq/L (3.5-5.1); SODIUM SERUM 139 mEq/L (136-145)
[2018-02-20] MEDS: Multivitamin Tab PO SCH (09:06)
--- NOTE | 2018-02-20 21:51 | Internal Medicine Prog Note ---
Internal Medicine Subjective - Subjective Service Date: 02/20/18 Patient seen and examined:: without staff Patient is:: awake, verbal, interactive, in wheelchair Patient Complaints of:: congestion Per staff patient has:: no adverse event Internal Medicine Objective - Results Result Diagrams: 02/18/18 19:10 02/20/18 06:00 Recent Labs: Laboratory Last Values WBC 7.9 Th/cmm (4.8-10.8) 02/18/18 19:10 RBC 4.91 Mil/cmm (3.80-5.80) 02/18/18 19:10 Hgb 14.2 gm/dL (12-16) 02/18/18 19:10 Hct 43.8 % (41.0-60) 02/18/18 19:10 MCV 89.1 fl (80-99) 02/18/18 19:10 MCH 29.0 pg (27.0-31.0) 02/18/18 19:10 MCHC Differential 32.5 pg (28.0-36.0) 02/18/18 19:10 RDW 12.8 % (11.5-20.0) 02/18/18 19:10 Plt Count 179 Th/cmm (150-400) 02/18/18 19:10 MPV 7.2 fl 02/18/18 19:10 Neutrophils % 74.7 % (40.0-80.0) 02/18/18 19:10 Lymphocytes % 16.0 % (20.0-50.0) L 02/18/18 19:10 Monocytes % 6.4 % (2.0-10.0) 02/18/18 19:10 Eosinophils % 2.2 % (0.0-5.0) 02/18/18 19:10 Basophils % 0.7 % (0.0-2.0) 02/18/18 19:10 PT 9.8 SECONDS (9.5-11.5) 02/18/18 19:10 INR 0.94 (0.5-1.4) 02/18/18 19:10 PTT (Actin FS) 28.7 SECONDS (26.0-38.0) 02/18/18 19:10 Sodium 139 mEq/L (136-145) 02/20/18 06:00 Potassium 4.1 mEq/L (3.5-5.1) 02/20/18 06:00 Chloride 107 mEq/L (98-107) 02/20/18 06:00 Carbon Dioxide 24.4 mEq/L (21.0-31.0) 02/20/18 06:00 Anion Gap 11.7 (7.0-16.0) 02/20/18 06:00 BUN 24 mg/dL (7-25) 02/20/18 06:00 Creatinine 1.4 mg/dL (0.7-1.3) H 02/20/18 06:00 Est GFR ( Amer) TNP 02/20/18 06:00 Est GFR (Non-Af Amer) TNP 02/20/18 06:00 BUN/Creatinine Ratio 17.1 02/20/18 06:00 Glucose 93 mg/dL (70-105) 02/20/18 06:00 Calcium 9.3 mg/dL (8.6-10.3) 02/20/18 06:00 Total Bilirubin 0.4 mg/dL (0.3-1.0) 02/18/18 19:10 AST 16 U/L (13-39) 02/18/18 19:10 ALT 14 U/L (7-52) 02/18/18 19:10 Alkaline Phosphatase 79 U/L (34-104) 02/18/18 19:10 Troponin I 0.01 ng/mL (0.01-0.05) 02/18/18 19:10 B-Natriuretic Peptide 6.3 pg/mL (5.0-100.0) 02/20/18 06:00 Total Protein 8.2 gm/dL (6.0-8.3) 02/18/18 19:10 Albumin 3.9 gm/dL (4.2-5.5) L 02/18/18 19:10 Globulin 4.3 gm/dL 02/18/18 19:10 Albumin/Globulin Ratio 0.9 (1.0-1.8) L 02/18/18 19:10 Triglycerides 115 mg/dL (<150) 02/19/18 00:50 Cholesterol 164 mg/dL (<200) 02/19/18 00:50 LDL Cholesterol Direct 133 mg/dL (75-193) 02/19/18 00:50 HDL Cholesterol 35 mg/dL (23-92) 02/19/18 00:50 TSH 1.24 uIU/ml (0.34-5.60) 02/18/18 19:10 Urine Source CLEAN C 02/18/18 20:09 Urine Color YELLOW 02/18/18 20:09 Urine Clarity CLEAR (CLEAR) 02/18/18 20:09 Urine pH 6.0 (4.6 - 8.0) 02/18/18 20:09 Ur Specific [place] 1.015 (1.005-1.030) 02/18/18 20:09 Urine Protein TRACE mg/dL (NEGATIVE) 02/18/18 20:09 Urine Glucose (UA) NEGATIVE mg/dL (NEGATIVE) 02/18/18 20:09 Urine Ketones NEGATIVE mg/dL (NEGATIVE) 02/18/18 20:09 Urine Blood NEGATIVE (NEGATIVE) 02/18/18 20:09 Urine Nitrate NEGATIVE (NEGATIVE) 02/18/18 20:09 Urine Bilirubin NEGATIVE (NEGATIVE) 02/18/18 20:09 Urine Urobilinogen 0.2 E.U./dL (0.2 - 1.0) 02/18/18 20:09 Ur Leukocyte Esterase NEGATIVE (NEGATIVE) 02/18/18 20:09 Urine RBC 0-2 /hpf (0-5) H 02/18/18 20:09 Urine WBC 0-2 /hpf (0-5) 02/18/18 20:09 Ur Epithelial Cells FEW /lpf (FEW) 02/18/18 20:09 Urine Bacteria FEW /hpf (NONE SEEN) 02/18/18 20:09 Urine Mucus FEW /lpf (FEW) 02/18/18 20:09 - Physical Exam Vitals and I&O: Vital Signs Temp 98.1 F 02/20/18 20:10 Pulse 77 02/20/18 20:10 Resp 18 02/20/18 20:10 BP 108/73 02/20/18 20:10 Pulse Ox 97 02/20/18 20:10 Intake & Output 02/20/18 02/20/18 02/21/18 06:59 18:59 06:59 Intake Total 280 800 120 Balance 280 800 120 Intake: Oral 280 800 120 Other: # Voids 2 3 1 # Bowel Movements 0 1 Active Medications: Current Medications Acetaminophen (Tylenol) 650 mg PO Q4HR PRN PRN Reason: Mild Pain / Temp above 100 Stop: 04/20/18 11:30 Al Hydrox/Mg Hydrox/Simethicone (Maalox) 30 ml PO Q4HR PRN PRN Reason: GI DISTRESS Stop: 04/20/18 11:30 Albuterol/Ipratropium (Duoneb Neb) 3 ml HHN Q4HRT PRN PRN Reason: Wheezing Stop: 04/20/18 07:38 Lorazepam (Ativan) 0.5 mg PO Q6HR PRN; Protocol PRN Reason: Anxiety Stop: 04/20/18 11:30 Last Admin: 02/20/18 09:06 Dose: 0.5 mg Magnesium Hydroxide (Milk Of Magnesia) 30 ml PO HS PRN PRN Reason: Constipation Stop: 04/20/18 11:30 Multivitamins/Vitamin C (Theragran) 1 tab PO DAILY HERMILA Stop: 04/21/18 08:59 Last Admin: 02/20/18 09:06 Dose: 1 tab Quetiapine Fumarate (Seroquel) 12.5 mg PO BID EHRMILA; Protocol Stop: 04/20/18 08:59 Last Admin: 02/20/18 17:40 Dose: 12.5 mg Zolpidem Tartrate (Ambien) 5 mg PO HSMR1 PRN PRN Reason: Insomnia Stop: 04/20/18 00:47 Last Admin: 02/19/18 20:24 Dose: 5 mg General: weak, lethargic, demented HEENT: NC/AT, PERRLA, EOMI Neck: Supple, No JVD, No thyromegaly, +2 carotid pulse wo bruit Lungs: wheezing Cardiovascular: RRR, Normal S1, without murmur Abdomen: soft, non-tender, non-distended Extremities: clear Internal Medicine Assmt/Plan - Assessment Assessment: ALOC: observe. Copd: RT protocol. CHF: stable. Psychosis: monitoring and adjusting meds. CONNER: try to avoid nephrotoxic med. h/o HTN: controlled.
--- NOTE | 2018-02-21 05:38 | Progress Notes ---
DATE: SUBJECTIVE: Chart reviewed and the patient interviewed. Also discussed the patient's condition with the staff and reviewed records and labs. The patient continued to have sexual inappropriate behavior and today the patient asked one of the nurses "come to bed with me." He still has episodes of agitation and irritability and he still needs lots of close monitoring and redirection. The patient also is still guarded. On the other hand, the patient is compliant with taking his medications with no side effects. ASSESSMENT: The patient is still agitated and psychotic and need close monitoring. TREATMENT PLAN: We will continue Seroquel 12.5 mg twice a day. Also, continue to work on his agitation and inappropriate behavior and we will continue to follow up closely. JOB# [id number]
[2018-02-21] MEDS: Multivitamin Tab PO SCH (08:40)
--- NOTE | 2018-02-21 23:55 | Progress Notes ---
DATE: 02/21/2018 SUBJECTIVE: Case was discussed with staff of the patient, reviewed records. The patient continues to be agitated, continues to be inappropriate, continues to have poor insight, irrational, and guarded. He is also making inappropriate comments to the staff. He is compliant with the medication with no side effects, no sedation, no nausea, and no extrapyramidal symptoms. I will be increasing his Seroquel to 25 mg twice a day. We will continue to work with the patient in group therapy, milieu therapy, and adjust the medications as needed. JOB# [id number]
[2018-02-22] MEDS: Multivitamin Tab PO SCH (08:39)
--- NOTE | 2018-02-22 14:11 | Internal Medicine Prog Note ---
Internal Medicine Subjective - Subjective Patient seen and examined:: chart reviewed Patient is:: awake, verbal, interactive, in wheelchair Patient Complaints of:: congestion Per staff patient has:: no adverse event Internal Medicine Objective - Results Result Diagrams: 02/18/18 19:10 02/20/18 06:00 Recent Labs: Laboratory Last Values WBC 7.9 Th/cmm (4.8-10.8) 02/18/18 19:10 RBC 4.91 Mil/cmm (3.80-5.80) 02/18/18 19:10 Hgb 14.2 gm/dL (12-16) 02/18/18 19:10 Hct 43.8 % (41.0-60) 02/18/18 19:10 MCV 89.1 fl (80-99) 02/18/18 19:10 MCH 29.0 pg (27.0-31.0) 02/18/18 19:10 MCHC Differential 32.5 pg (28.0-36.0) 02/18/18 19:10 RDW 12.8 % (11.5-20.0) 02/18/18 19:10 Plt Count 179 Th/cmm (150-400) 02/18/18 19:10 MPV 7.2 fl 02/18/18 19:10 Neutrophils % 74.7 % (40.0-80.0) 02/18/18 19:10 Lymphocytes % 16.0 % (20.0-50.0) L 02/18/18 19:10 Monocytes % 6.4 % (2.0-10.0) 02/18/18 19:10 Eosinophils % 2.2 % (0.0-5.0) 02/18/18 19:10 Basophils % 0.7 % (0.0-2.0) 02/18/18 19:10 PT 9.8 SECONDS (9.5-11.5) 02/18/18 19:10 INR 0.94 (0.5-1.4) 02/18/18 19:10 PTT (Actin FS) 28.7 SECONDS (26.0-38.0) 02/18/18 19:10 Sodium 139 mEq/L (136-145) 02/20/18 06:00 Potassium 4.1 mEq/L (3.5-5.1) 02/20/18 06:00 Chloride 107 mEq/L (98-107) 02/20/18 06:00 Carbon Dioxide 24.4 mEq/L (21.0-31.0) 02/20/18 06:00 Anion Gap 11.7 (7.0-16.0) 02/20/18 06:00 BUN 24 mg/dL (7-25) 02/20/18 06:00 Creatinine 1.4 mg/dL (0.7-1.3) H 02/20/18 06:00 Est GFR ( Amer) TNP 02/20/18 06:00 Est GFR (Non-Af Amer) TNP 02/20/18 06:00 BUN/Creatinine Ratio 17.1 02/20/18 06:00 Glucose 93 mg/dL (70-105) 02/20/18 06:00 Calcium 9.3 mg/dL (8.6-10.3) 02/20/18 06:00 Total Bilirubin 0.4 mg/dL (0.3-1.0) 02/18/18 19:10 AST 16 U/L (13-39) 02/18/18 19:10 ALT 14 U/L (7-52) 02/18/18 19:10 Alkaline Phosphatase 79 U/L (34-104) 02/18/18 19:10 Troponin I 0.01 ng/mL (0.01-0.05) 02/18/18 19:10 B-Natriuretic Peptide 6.3 pg/mL (5.0-100.0) 02/20/18 06:00 Total Protein 8.2 gm/dL (6.0-8.3) 02/18/18 19:10 Albumin 3.9 gm/dL (4.2-5.5) L 02/18/18 19:10 Globulin 4.3 gm/dL 02/18/18 19:10 Albumin/Globulin Ratio 0.9 (1.0-1.8) L 02/18/18 19:10 Triglycerides 115 mg/dL (<150) 02/19/18 00:50 Cholesterol 164 mg/dL (<200) 02/19/18 00:50 LDL Cholesterol Direct 133 mg/dL (75-193) 02/19/18 00:50 HDL Cholesterol 35 mg/dL (23-92) 02/19/18 00:50 Carcinoembryonic Ag 1.0 ng/mL (0.0-4.7) 02/19/18 12:58 Prostate Specific Ag 2.5 ng/mL (0.0-4.0) 02/20/18 06:00 TSH 1.24 uIU/ml (0.34-5.60) 02/18/18 19:10 Urine Source CLEAN C 02/18/18 20:09 Urine Color YELLOW 02/18/18 20:09 Urine Clarity CLEAR (CLEAR) 02/18/18 20:09 Urine pH 6.0 (4.6 - 8.0) 02/18/18 20:09 Ur Specific [place] 1.015 (1.005-1.030) 02/18/18 20:09 Urine Protein TRACE mg/dL (NEGATIVE) 02/18/18 20:09 Urine Glucose (UA) NEGATIVE mg/dL (NEGATIVE) 02/18/18 20:09 Urine Ketones NEGATIVE mg/dL (NEGATIVE) 02/18/18 20:09 Urine Blood NEGATIVE (NEGATIVE) 02/18/18 20:09 Urine Nitrate NEGATIVE (NEGATIVE) 02/18/18 20:09 Urine Bilirubin NEGATIVE (NEGATIVE) 02/18/18 20:09 Urine Urobilinogen 0.2 E.U./dL (0.2 - 1.0) 02/18/18 20:09 Ur Leukocyte Esterase NEGATIVE (NEGATIVE) 02/18/18 20:09 Urine RBC 0-2 /hpf (0-5) H 02/18/18 20:09 Urine WBC 0-2 /hpf (0-5) 02/18/18 20:09 Ur Epithelial Cells FEW /lpf (FEW) 02/18/18 20:09 Urine Bacteria FEW /hpf (NONE SEEN) 02/18/18 20:09 Urine Mucus FEW /lpf (FEW) 02/18/18 20:09 - Physical Exam Vitals and I&O: Vital Signs Temp 98.1 F 02/22/18 06:06 Pulse 93 02/22/18 06:06 Resp 20 02/22/18 12:14 BP 123/68 02/22/18 06:06 Pulse Ox 94 02/22/18 06:06 Intake & Output 02/21/18 02/22/18 02/22/18 18:59 06:59 18:59 Intake Total 900 240 Balance 900 240 Intake: Oral 900 240 Other: # Voids 3 3 # Bowel Movements 1 0 Active Medications: Current Medications Acetaminophen (Tylenol) 650 mg PO Q4HR PRN PRN Reason: Mild Pain / Temp above 100 Stop: 04/20/18 11:30 Al Hydrox/Mg Hydrox/Simethicone (Maalox) 30 ml PO Q4HR PRN PRN Reason: GI DISTRESS Stop: 04/20/18 11:30 Albuterol/Ipratropium (Duoneb Neb) 3 ml HHN Q4HRT PRN PRN Reason: Wheezing Stop: 04/20/18 07:38 Lorazepam (Ativan) 0.5 mg PO Q6HR PRN; Protocol PRN Reason: Anxiety Stop: 04/20/18 11:30 Last Admin: 02/22/18 08:40 Dose: 0.5 mg Magnesium Hydroxide (Milk Of Magnesia) 30 ml PO HS PRN PRN Reason: Constipation Stop: 04/20/18 11:30 Multivitamins/Vitamin C (Theragran) 1 tab PO DAILY HERMILA Stop: 04/21/18 08:59 Last Admin: 02/22/18 08:39 Dose: 1 tab Quetiapine Fumarate (Seroquel) 50 mg PO BID HERMILA; Protocol Stop: 04/23/18 08:59 Last Admin: 02/22/18 09:14 Dose: Not Given Zolpidem Tartrate (Ambien) 5 mg PO HSMR1 PRN PRN Reason: Insomnia Stop: 04/20/18 00:47 Last Admin: 02/19/18 20:24 Dose: 5 mg General: weak, lethargic, demented HEENT: NC/AT, PERRLA, EOMI Neck: Supple, No JVD, No thyromegaly, +2 carotid pulse wo bruit Lungs: wheezing Cardiovascular: RRR, Normal S1, without murmur Abdomen: soft, non-tender, non-distended Extremities: clear Internal Medicine Assmt/Plan - Assessment Assessment: ALOC COPD CHF Psychosis CONNER HTN - Plan Plan: cpm Nutritional Asmnt/Malnutr-PDOC - Dietary Evaluation Malnutrition Findings (Please click <Entered> for more info): Nutritional Asmnt/Malnutrition Start: 02/22/18 13: 47 Text: Status: Complete Freq: Protocol: Document 02/22/18 13:48 LCHENG (Rec: 02/22/18 13:54 [facility] [id number]) Nutritional Asmnt/Malnutrition Patient General Information Nutritional Screening Moderate Risk Diagnosis psychosis Pertinent Medical Hx/Surgical Hx HTN, CHF, asthma/COPD, arthritis, dementia, aortic aneurysm Subjective Information Pt seen on wheelchair by nurse station, confused. Pt stated no concern about current diet/ food. Per EMR, PO intake 100%. Current Diet Order/ Nutrition Support [facility] soft chopped, cardiac, low sodium Pertinent Medications theragran, seroquel Pertinent Labs 02/20 Cr 1.4, glucose 93 02/18 Cr 1.5, glucose 150 Nutritional Hx/Data Height 1.75 m Height (Calculated Centimeters) 175.3 Current Weight (lbs) 90.718 kg Weight (Calculated Kilograms) 90.7 Weight (Calculated Grams) 86104.5 [place] Body Weight 160 Body Mass Index (BMI) 29.5 GI Symptoms GI Symptoms None Last BM 02/21 Difficult in: None Skin Integrity/Comment: delmi malagon 19 Current %PO Good (75-100%) Estimated Nutritional Goals BEE in Kcals: Using Current wt Calories/Kcals/Kg 23-27 Kcals Calculated 5282-7275 Protein: Using Current wt Protein g/k.8 Protein Calculated 73 Fluid: ml 2093-2457ml (1ml/kcal) Nutritional Problem No current Nutrition Prob Problem N/A Malnutrition Alert Is there a minimum of two criteria No selected? Query Text:Check all the applicable criteria. A minimum of two criteria are recommended for diagnosis of either severe or non-severe malnutrition. Malnutrition Related to Morbid Obesity Malnutrition related to morbid obesity No Intervention/Recommendation Comments 1. Continue with [facility] soft chopped, cardiac diet low sodium diet as ordered. 2. Monitor PO intake, wt, labs and skin integrity 3. F/U as low risk in 7 days Expected Outcomes/Goals Expected Outcomes/Goals 1. PO intake to meet at least 75% of nutritional needs. 2. Wt stability, skin to remain intact, labs to approach WNL.
--- NOTE | 2018-02-23 01:20 | Progress Notes ---
DATE: SUBJECTIVE: Chart reviewed and the patient interviewed. Also discussed the patient's condition with the staff and reviewed records and labs. "Spending all my life looking for my room." The patient remains confused and he is only oriented to self. Also, easily agitated and easily irritable. The patient also continued to have sexually inappropriate behavior and asking the nurses to go to bed with him, but that is because of his confusion. He also has been taking off his top clothes and going out in the hallway topless. He also is still easily irritable and agitated and also going on the unit "looking for my ." Otherwise, the patient is compliant with taking his medications with no side effects. ASSESSMENT: The patient is still confused and is still having episodes of agitation. TREATMENT PLAN: Continue to monitor his behavior and his condition closely. Also, we will increase Seroquel to 50 mg twice a day. Also, I did speak to his daughter today and discussed with her placement issue. She is looking for a place in [place] for his placement and she prefers that. She told me that she went and checked the place and she likes it. Continue working on behavioral modification and continue to follow up. JOB# [id number]
[2018-02-23] MEDS: Multivitamin Tab PO SCH (08:44)
--- NOTE | 2018-02-23 15:32 | Internal Medicine Prog Note ---
Internal Medicine Subjective - Subjective Patient seen and examined:: with staff (still confused and agitated at times ), chart reviewed Patient is:: awake, verbal, interactive, in wheelchair Patient Complaints of:: congestion Per staff patient has:: no adverse event Internal Medicine Objective - Results Result Diagrams: 02/18/18 19:10 02/20/18 06:00 Recent Labs: Laboratory Last Values WBC 7.9 Th/cmm (4.8-10.8) 02/18/18 19:10 RBC 4.91 Mil/cmm (3.80-5.80) 02/18/18 19:10 Hgb 14.2 gm/dL (12-16) 02/18/18 19:10 Hct 43.8 % (41.0-60) 02/18/18 19:10 MCV 89.1 fl (80-99) 02/18/18 19:10 MCH 29.0 pg (27.0-31.0) 02/18/18 19:10 MCHC Differential 32.5 pg (28.0-36.0) 02/18/18 19:10 RDW 12.8 % (11.5-20.0) 02/18/18 19:10 Plt Count 179 Th/cmm (150-400) 02/18/18 19:10 MPV 7.2 fl 02/18/18 19:10 Neutrophils % 74.7 % (40.0-80.0) 02/18/18 19:10 Lymphocytes % 16.0 % (20.0-50.0) L 02/18/18 19:10 Monocytes % 6.4 % (2.0-10.0) 02/18/18 19:10 Eosinophils % 2.2 % (0.0-5.0) 02/18/18 19:10 Basophils % 0.7 % (0.0-2.0) 02/18/18 19:10 PT 9.8 SECONDS (9.5-11.5) 02/18/18 19:10 INR 0.94 (0.5-1.4) 02/18/18 19:10 PTT (Actin FS) 28.7 SECONDS (26.0-38.0) 02/18/18 19:10 Sodium 139 mEq/L (136-145) 02/20/18 06:00 Potassium 4.1 mEq/L (3.5-5.1) 02/20/18 06:00 Chloride 107 mEq/L (98-107) 02/20/18 06:00 Carbon Dioxide 24.4 mEq/L (21.0-31.0) 02/20/18 06:00 Anion Gap 11.7 (7.0-16.0) 02/20/18 06:00 BUN 24 mg/dL (7-25) 02/20/18 06:00 Creatinine 1.4 mg/dL (0.7-1.3) H 02/20/18 06:00 Est GFR ( Amer) TNP 02/20/18 06:00 Est GFR (Non-Af Amer) TNP 02/20/18 06:00 BUN/Creatinine Ratio 17.1 02/20/18 06:00 Glucose 93 mg/dL (70-105) 02/20/18 06:00 Calcium 9.3 mg/dL (8.6-10.3) 02/20/18 06:00 Total Bilirubin 0.4 mg/dL (0.3-1.0) 02/18/18 19:10 AST 16 U/L (13-39) 02/18/18 19:10 ALT 14 U/L (7-52) 02/18/18 19:10 Alkaline Phosphatase 79 U/L (34-104) 02/18/18 19:10 Troponin I 0.01 ng/mL (0.01-0.05) 02/18/18 19:10 B-Natriuretic Peptide 6.3 pg/mL (5.0-100.0) 02/20/18 06:00 Total Protein 8.2 gm/dL (6.0-8.3) 02/18/18 19:10 Albumin 3.9 gm/dL (4.2-5.5) L 02/18/18 19:10 Globulin 4.3 gm/dL 02/18/18 19:10 Albumin/Globulin Ratio 0.9 (1.0-1.8) L 02/18/18 19:10 Triglycerides 115 mg/dL (<150) 02/19/18 00:50 Cholesterol 164 mg/dL (<200) 02/19/18 00:50 LDL Cholesterol Direct 133 mg/dL (75-193) 02/19/18 00:50 HDL Cholesterol 35 mg/dL (23-92) 02/19/18 00:50 Carcinoembryonic Ag 1.0 ng/mL (0.0-4.7) 02/19/18 12:58 Prostate Specific Ag 2.5 ng/mL (0.0-4.0) 02/20/18 06:00 TSH 1.24 uIU/ml (0.34-5.60) 02/18/18 19:10 Urine Source CLEAN C 02/18/18 20:09 Urine Color YELLOW 02/18/18 20:09 Urine Clarity CLEAR (CLEAR) 02/18/18 20:09 Urine pH 6.0 (4.6 - 8.0) 02/18/18 20:09 Ur Specific [place] 1.015 (1.005-1.030) 02/18/18 20:09 Urine Protein TRACE mg/dL (NEGATIVE) 02/18/18 20:09 Urine Glucose (UA) NEGATIVE mg/dL (NEGATIVE) 02/18/18 20:09 Urine Ketones NEGATIVE mg/dL (NEGATIVE) 02/18/18 20:09 Urine Blood NEGATIVE (NEGATIVE) 02/18/18 20:09 Urine Nitrate NEGATIVE (NEGATIVE) 02/18/18 20:09 Urine Bilirubin NEGATIVE (NEGATIVE) 02/18/18 20:09 Urine Urobilinogen 0.2 E.U./dL (0.2 - 1.0) 02/18/18 20:09 Ur Leukocyte Esterase NEGATIVE (NEGATIVE) 02/18/18 20:09 Urine RBC 0-2 /hpf (0-5) H 02/18/18 20:09 Urine WBC 0-2 /hpf (0-5) 02/18/18 20:09 Ur Epithelial Cells FEW /lpf (FEW) 02/18/18 20:09 Urine Bacteria FEW /hpf (NONE SEEN) 02/18/18 20:09 Urine Mucus FEW /lpf (FEW) 02/18/18 20:09 - Physical Exam Vitals and I&O: Vital Signs Temp 97.8 F 02/23/18 06:06 Pulse 100 02/23/18 09:01 Resp 20 02/23/18 10:07 BP 115/66 02/23/18 06:06 Pulse Ox 97 02/23/18 09:01 Intake & Output 02/22/18 02/23/18 02/23/18 18:59 06:59 18:59 Intake Total 1400 120 Balance 1400 120 Intake: Oral 1400 120 Other: # Voids 4 3 # Bowel Movements 1 Active Medications: Current Medications Acetaminophen (Tylenol) 650 mg PO Q4HR PRN PRN Reason: Mild Pain / Temp above 100 Stop: 04/20/18 11:30 Al Hydrox/Mg Hydrox/Simethicone (Maalox) 30 ml PO Q4HR PRN PRN Reason: GI DISTRESS Stop: 04/20/18 11:30 Albuterol/Ipratropium (Duoneb Neb) 3 ml HHN Q4HRT PRN PRN Reason: Wheezing Stop: 04/20/18 07:38 Lorazepam (Ativan) 0.5 mg PO Q6HR PRN; Protocol PRN Reason: Anxiety Stop: 04/20/18 11:30 Last Admin: 02/23/18 08:44 Dose: 0.5 mg Magnesium Hydroxide (Milk Of Magnesia) 30 ml PO HS PRN PRN Reason: Constipation Stop: 04/20/18 11:30 Multivitamins/Vitamin C (Theragran) 1 tab PO DAILY HERMILA Stop: 04/21/18 08:59 Last Admin: 02/23/18 08:44 Dose: 1 tab Quetiapine Fumarate (Seroquel) 50 mg PO BID HERMILA; Protocol Stop: 04/23/18 08:59 Last Admin: 02/23/18 08:44 Dose: 50 mg Zolpidem Tartrate (Ambien) 5 mg PO HSMR1 PRN PRN Reason: Insomnia Stop: 04/20/18 00:47 Last Admin: 02/19/18 20:24 Dose: 5 mg General: weak, lethargic, demented HEENT: NC/AT, PERRLA, EOMI Neck: Supple, No JVD, No thyromegaly, +2 carotid pulse wo bruit Lungs: wheezing Cardiovascular: RRR, Normal S1, without murmur Abdomen: soft, non-tender, non-distended Extremities: clear Internal Medicine Assmt/Plan - Assessment Assessment: ALOC COPD CHF Psychosis CONNER HTN - Plan Plan: as per psych will continue to monitor patient Nutritional Asmnt/Malnutr-PDOC - Dietary Evaluation Malnutrition Findings (Please click <Entered> for more info): Nutritional Asmnt/Malnutrition Start: 02/22/18 13: 47 Text: Status: Complete Freq: Protocol: Document 02/22/18 13:48 LCHENG (Rec: 02/22/18 13:54 LCHENG [email or web address]) Nutritional Asmnt/Malnutrition Patient General Information Nutritional Screening Moderate Risk Diagnosis psychosis Pertinent Medical Hx/Surgical Hx HTN, CHF, asthma/COPD, arthritis, dementia, aortic aneurysm Subjective Information Pt seen on wheelchair by nurse station, confused. Pt stated no concern about current diet/ food. Per EMR, PO intake 100%. Current Diet Order/ Nutrition Support [facility] soft chopped, cardiac, low sodium Pertinent Medications theragran, seroquel Pertinent Labs 02/20 Cr 1.4, glucose 93 02/18 Cr 1.5, glucose 150 Nutritional Hx/Data Height 1.75 m Height (Calculated Centimeters) 175.3 Current Weight (lbs) 90.718 kg Weight (Calculated Kilograms) 90.7 Weight (Calculated Grams) 76813.5 [place] Body Weight 160 Body Mass Index (BMI) 29.5 GI Symptoms GI Symptoms None Last BM 02/21 Difficult in: None Skin Integrity/Comment: delmi malagon 19 Current %PO Good (75-100%) Estimated Nutritional Goals BEE in Kcals: Using Current wt Calories/Kcals/Kg 23-27 Kcals Calculated 4324-6531 Protein: Using Current wt Protein g/k.8 Protein Calculated 73 Fluid: ml 2093-2457ml (1ml/kcal) Nutritional Problem No current Nutrition Prob Problem N/A Malnutrition Alert Is there a minimum of two criteria No selected? Query Text:Check all the applicable criteria. A minimum of two criteria are recommended for diagnosis of either severe or non-severe malnutrition. Malnutrition Related to Morbid Obesity Malnutrition related to morbid obesity No Intervention/Recommendation Comments 1. Continue with [facility] soft chopped, cardiac diet low sodium diet as ordered. 2. Monitor PO intake, wt, labs and skin integrity 3. F/U as low risk in 7 days Expected Outcomes/Goals Expected Outcomes/Goals 1. PO intake to meet at least 75% of nutritional needs. 2. Wt stability, skin to remain intact, labs to approach WNL.
[2018-02-24] MEDS: Multivitamin Tab PO SCH (08:55)
--- NOTE | 2018-02-24 09:53 | Internal Medicine Prog Note ---
Internal Medicine Subjective - Subjective Service Date: 02/24/18 Patient seen and examined:: without staff Patient is:: awake, verbal, interactive, in wheelchair Patient Complaints of:: congestion Per staff patient has:: no adverse event Internal Medicine Objective - Results Result Diagrams: 02/18/18 19:10 02/20/18 06:00 Recent Labs: Laboratory Last Values WBC 7.9 Th/cmm (4.8-10.8) 02/18/18 19:10 RBC 4.91 Mil/cmm (3.80-5.80) 02/18/18 19:10 Hgb 14.2 gm/dL (12-16) 02/18/18 19:10 Hct 43.8 % (41.0-60) 02/18/18 19:10 MCV 89.1 fl (80-99) 02/18/18 19:10 MCH 29.0 pg (27.0-31.0) 02/18/18 19:10 MCHC Differential 32.5 pg (28.0-36.0) 02/18/18 19:10 RDW 12.8 % (11.5-20.0) 02/18/18 19:10 Plt Count 179 Th/cmm (150-400) 02/18/18 19:10 MPV 7.2 fl 02/18/18 19:10 Neutrophils % 74.7 % (40.0-80.0) 02/18/18 19:10 Lymphocytes % 16.0 % (20.0-50.0) L 02/18/18 19:10 Monocytes % 6.4 % (2.0-10.0) 02/18/18 19:10 Eosinophils % 2.2 % (0.0-5.0) 02/18/18 19:10 Basophils % 0.7 % (0.0-2.0) 02/18/18 19:10 PT 9.8 SECONDS (9.5-11.5) 02/18/18 19:10 INR 0.94 (0.5-1.4) 02/18/18 19:10 PTT (Actin FS) 28.7 SECONDS (26.0-38.0) 02/18/18 19:10 Sodium 139 mEq/L (136-145) 02/20/18 06:00 Potassium 4.1 mEq/L (3.5-5.1) 02/20/18 06:00 Chloride 107 mEq/L (98-107) 02/20/18 06:00 Carbon Dioxide 24.4 mEq/L (21.0-31.0) 02/20/18 06:00 Anion Gap 11.7 (7.0-16.0) 02/20/18 06:00 BUN 24 mg/dL (7-25) 02/20/18 06:00 Creatinine 1.4 mg/dL (0.7-1.3) H 02/20/18 06:00 Est GFR ( Amer) TNP 02/20/18 06:00 Est GFR (Non-Af Amer) TNP 02/20/18 06:00 BUN/Creatinine Ratio 17.1 02/20/18 06:00 Glucose 93 mg/dL (70-105) 02/20/18 06:00 Calcium 9.3 mg/dL (8.6-10.3) 02/20/18 06:00 Total Bilirubin 0.4 mg/dL (0.3-1.0) 02/18/18 19:10 AST 16 U/L (13-39) 02/18/18 19:10 ALT 14 U/L (7-52) 02/18/18 19:10 Alkaline Phosphatase 79 U/L (34-104) 02/18/18 19:10 Troponin I 0.01 ng/mL (0.01-0.05) 02/18/18 19:10 B-Natriuretic Peptide 6.3 pg/mL (5.0-100.0) 02/20/18 06:00 Total Protein 8.2 gm/dL (6.0-8.3) 02/18/18 19:10 Albumin 3.9 gm/dL (4.2-5.5) L 02/18/18 19:10 Globulin 4.3 gm/dL 02/18/18 19:10 Albumin/Globulin Ratio 0.9 (1.0-1.8) L 02/18/18 19:10 Triglycerides 115 mg/dL (<150) 02/19/18 00:50 Cholesterol 164 mg/dL (<200) 02/19/18 00:50 LDL Cholesterol Direct 133 mg/dL (75-193) 02/19/18 00:50 HDL Cholesterol 35 mg/dL (23-92) 02/19/18 00:50 Carcinoembryonic Ag 1.0 ng/mL (0.0-4.7) 02/19/18 12:58 Prostate Specific Ag 2.5 ng/mL (0.0-4.0) 02/20/18 06:00 TSH 1.24 uIU/ml (0.34-5.60) 02/18/18 19:10 Urine Source CLEAN C 02/18/18 20:09 Urine Color YELLOW 02/18/18 20:09 Urine Clarity CLEAR (CLEAR) 02/18/18 20:09 Urine pH 6.0 (4.6 - 8.0) 02/18/18 20:09 Ur Specific [place] 1.015 (1.005-1.030) 02/18/18 20:09 Urine Protein TRACE mg/dL (NEGATIVE) 02/18/18 20:09 Urine Glucose (UA) NEGATIVE mg/dL (NEGATIVE) 02/18/18 20:09 Urine Ketones NEGATIVE mg/dL (NEGATIVE) 02/18/18 20:09 Urine Blood NEGATIVE (NEGATIVE) 02/18/18 20:09 Urine Nitrate NEGATIVE (NEGATIVE) 02/18/18 20:09 Urine Bilirubin NEGATIVE (NEGATIVE) 02/18/18 20:09 Urine Urobilinogen 0.2 E.U./dL (0.2 - 1.0) 02/18/18 20:09 Ur Leukocyte Esterase NEGATIVE (NEGATIVE) 02/18/18 20:09 Urine RBC 0-2 /hpf (0-5) H 02/18/18 20:09 Urine WBC 0-2 /hpf (0-5) 02/18/18 20:09 Ur Epithelial Cells FEW /lpf (FEW) 02/18/18 20:09 Urine Bacteria FEW /hpf (NONE SEEN) 02/18/18 20:09 Urine Mucus FEW /lpf (FEW) 02/18/18 20:09 - Physical Exam Vitals and I&O: Vital Signs Temp 98.2 F 02/24/18 04:49 Pulse 82 02/24/18 07:26 Resp 18 02/24/18 07:26 BP 114/71 02/24/18 04:49 Pulse Ox 95 02/24/18 07:26 Intake & Output 02/23/18 02/24/18 02/24/18 18:59 06:59 18:59 Intake Total 1400 480 Balance 1400 480 Intake: Oral 1400 480 Other: # Voids 3 2 # Bowel Movements 0 Active Medications: Current Medications Acetaminophen (Tylenol) 650 mg PO Q4HR PRN PRN Reason: Mild Pain / Temp above 100 Stop: 04/20/18 11:30 Al Hydrox/Mg Hydrox/Simethicone (Maalox) 30 ml PO Q4HR PRN PRN Reason: GI DISTRESS Stop: 04/20/18 11:30 Albuterol/Ipratropium (Duoneb Neb) 3 ml HHN Q4HRT PRN PRN Reason: Wheezing Stop: 04/20/18 07:38 Lorazepam (Ativan) 0.5 mg PO Q6HR PRN; Protocol PRN Reason: Anxiety Stop: 04/20/18 11:30 Last Admin: 02/24/18 08:54 Dose: 0.5 mg Magnesium Hydroxide (Milk Of Magnesia) 30 ml PO HS PRN PRN Reason: Constipation Stop: 04/20/18 11:30 Multivitamins/Vitamin C (Theragran) 1 tab PO DAILY HERMILA Stop: 04/21/18 08:59 Last Admin: 02/24/18 08:55 Dose: 1 tab Quetiapine Fumarate (Seroquel) 50 mg PO BID HERMILA; Protocol Stop: 04/23/18 08:59 Last Admin: 02/24/18 08:55 Dose: 50 mg Zolpidem Tartrate (Ambien) 5 mg PO HSMR1 PRN PRN Reason: Insomnia Stop: 04/20/18 00:47 Last Admin: 02/19/18 20:24 Dose: 5 mg General: weak, lethargic, demented HEENT: NC/AT, PERRLA, EOMI Neck: Supple, No JVD, No thyromegaly, +2 carotid pulse wo bruit Lungs: wheezing Cardiovascular: RRR, Normal S1, without murmur Abdomen: soft, non-tender, non-distended Extremities: clear Internal Medicine Assmt/Plan - Assessment Assessment: S/P fall: fall precaution is being exercised. ALOC: observe. Copd: RT protocol. CHF: stable. Psychosis: monitoring and adjusting meds. CONNER: try to avoid nephrotoxic med. h/o HTN: controlled. Nutritional Asmnt/Malnutr-PDOC - Dietary Evaluation Malnutrition Findings (Please click <Entered> for more info): Nutritional Asmnt/Malnutrition Start: 02/22/18 13: 47 Text: Status: Complete Freq: Protocol: Document 02/22/18 13:48 RAVINDRAWILL (Rec: 02/22/18 13:54 RAVINDRAWILL [id number]) Nutritional Asmnt/Malnutrition Patient General Information Nutritional Screening Moderate Risk Diagnosis psychosis Pertinent Medical Hx/Surgical Hx HTN, CHF, asthma/COPD, arthritis, dementia, aortic aneurysm Subjective Information Pt seen on wheelchair by nurse station, confused. Pt stated no concern about current diet/ food. Per EMR, PO intake 100%. Current Diet Order/ Nutrition Support mech soft chopped, cardiac, low sodium Pertinent Medications theragran, seroquel Pertinent Labs 02/20 Cr 1.4, glucose 93 02/18 Cr 1.5, glucose 150 Nutritional Hx/Data Height 1.75 m Height (Calculated Centimeters) 175.3 Current Weight (lbs) 90.718 kg Weight (Calculated Kilograms) 90.7 Weight (Calculated Grams) 87759.5 [place] Body Weight 160 Body Mass Index (BMI) 29.5 GI Symptoms GI Symptoms None Last BM 02/21 Difficult in: None Skin Integrity/Comment: dryness, delmi 19 Current %PO Good (75-100%) Estimated Nutritional Goals BEE in Kcals: Using Current wt Calories/Kcals/Kg 23-27 Kcals Calculated 7356-2547 Protein: Using Current wt Protein g/k.8 Protein Calculated 73 Fluid: ml 2093-2457ml (1ml/kcal) Nutritional Problem No current Nutrition Prob Problem N/A Malnutrition Alert Is there a minimum of two criteria No selected? Query Text:Check all the applicable criteria. A minimum of two criteria are recommended for diagnosis of either severe or non-severe malnutrition. Malnutrition Related to Morbid Obesity Malnutrition related to morbid obesity No Intervention/Recommendation Comments 1. Continue with mech soft chopped, cardiac diet low sodium diet as ordered. 2. Monitor PO intake, wt, labs and skin integrity 3. F/U as low risk in 7 days Expected Outcomes/Goals Expected Outcomes/Goals 1. PO intake to meet at least 75% of nutritional needs. 2. Wt stability, skin to remain intact, labs to approach WNL.
--- NOTE | 2018-02-24 20:22 | Progress Notes ---
DATE: SUBJECTIVE: Chart reviewed and the patient interviewed. Also discussed the patient's condition with the staff and reviewed records and labs. The patient continued to be confused and forgetful. The patient also is selectively mute and he is still having labile affect. The patient also still easily agitated and easily irritable, but seems to be calmer than before. The patient also slept better last night and seems to be slightly easier to redirect him. Also, decreased sexual inappropriate behavior and the patient today get his clothes on and able to follow instructions. ASSESSMENT: The patient is still confused and agitated, but shows some improvement. TREATMENT PLAN: Continue to monitor his behavior and his condition closely. Also, continue to work on discharge plans and placement issue. I did discuss with the patient's daughter placement issue and working on his placement. JOB# [id number]
[2018-02-25 07:26] LABS: ANION GAP 13.9 (7.0-16.0); BUN - UREA NITROGEN 24 mg/dL (7-25); CALCIUM SERUM 9.8 mg/dL (8.6-10.3); CARBON DIOXIDE 24.5 mEq/L (21.0-31.0); CHLORIDE 103 mEq/L (98-107); CREATININE - SERUM 1.5 mg/dL (0.7-1.3); GLUCOSE 99 mg/dL (70-105); POTASSIUM SERUM 4.4 mEq/L (3.5-5.1); SODIUM SERUM 137 mEq/L (136-145)
[2018-02-25] MEDS: Multivitamin Tab PO SCH (09:43)
--- NOTE | 2018-02-25 19:45 | Internal Medicine Prog Note ---
Internal Medicine Subjective - Subjective Service Date: 02/25/18 Patient seen and examined:: with staff Patient is:: awake, verbal, interactive, in wheelchair Patient Complaints of:: congestion Per staff patient has:: no adverse event Internal Medicine Objective - Results Result Diagrams: 02/18/18 19:10 02/25/18 06:46 Recent Labs: Laboratory Last Values WBC 7.9 Th/cmm (4.8-10.8) 02/18/18 19:10 RBC 4.91 Mil/cmm (3.80-5.80) 02/18/18 19:10 Hgb 14.2 gm/dL (12-16) 02/18/18 19:10 Hct 43.8 % (41.0-60) 02/18/18 19:10 MCV 89.1 fl (80-99) 02/18/18 19:10 MCH 29.0 pg (27.0-31.0) 02/18/18 19:10 MCHC Differential 32.5 pg (28.0-36.0) 02/18/18 19:10 RDW 12.8 % (11.5-20.0) 02/18/18 19:10 Plt Count 179 Th/cmm (150-400) 02/18/18 19:10 MPV 7.2 fl 02/18/18 19:10 Neutrophils % 74.7 % (40.0-80.0) 02/18/18 19:10 Lymphocytes % 16.0 % (20.0-50.0) L 02/18/18 19:10 Monocytes % 6.4 % (2.0-10.0) 02/18/18 19:10 Eosinophils % 2.2 % (0.0-5.0) 02/18/18 19:10 Basophils % 0.7 % (0.0-2.0) 02/18/18 19:10 PT 9.8 SECONDS (9.5-11.5) 02/18/18 19:10 INR 0.94 (0.5-1.4) 02/18/18 19:10 PTT (Actin FS) 28.7 SECONDS (26.0-38.0) 02/18/18 19:10 Sodium 137 mEq/L (136-145) 02/25/18 06:46 Potassium 4.4 mEq/L (3.5-5.1) 02/25/18 06:46 Chloride 103 mEq/L (98-107) 02/25/18 06:46 Carbon Dioxide 24.5 mEq/L (21.0-31.0) 02/25/18 06:46 Anion Gap 13.9 (7.0-16.0) 02/25/18 06:46 BUN 24 mg/dL (7-25) 02/25/18 06:46 Creatinine 1.5 mg/dL (0.7-1.3) H 02/25/18 06:46 Est GFR ( Amer) TNP 02/25/18 06:46 Est GFR (Non-Af Amer) TNP 02/25/18 06:46 BUN/Creatinine Ratio 16.0 02/25/18 06:46 Glucose 99 mg/dL (70-105) 02/25/18 06:46 POC Glucose 85 MG/DL (70 - 105) 02/25/18 05:51 Calcium 9.8 mg/dL (8.6-10.3) 02/25/18 06:46 Total Bilirubin 0.4 mg/dL (0.3-1.0) 02/18/18 19:10 AST 16 U/L (13-39) 02/18/18 19:10 ALT 14 U/L (7-52) 02/18/18 19:10 Alkaline Phosphatase 79 U/L (34-104) 02/18/18 19:10 Troponin I 0.01 ng/mL (0.01-0.05) 02/18/18 19:10 B-Natriuretic Peptide 6.3 pg/mL (5.0-100.0) 02/20/18 06:00 Total Protein 8.2 gm/dL (6.0-8.3) 02/18/18 19:10 Albumin 3.9 gm/dL (4.2-5.5) L 02/18/18 19:10 Globulin 4.3 gm/dL 02/18/18 19:10 Albumin/Globulin Ratio 0.9 (1.0-1.8) L 02/18/18 19:10 Triglycerides 115 mg/dL (<150) 02/19/18 00:50 Cholesterol 164 mg/dL (<200) 02/19/18 00:50 LDL Cholesterol Direct 133 mg/dL (75-193) 02/19/18 00:50 HDL Cholesterol 35 mg/dL (23-92) 02/19/18 00:50 Carcinoembryonic Ag 1.0 ng/mL (0.0-4.7) 02/19/18 12:58 Prostate Specific Ag 2.5 ng/mL (0.0-4.0) 02/20/18 06:00 TSH 1.24 uIU/ml (0.34-5.60) 02/18/18 19:10 Urine Source CLEAN C 02/18/18 20:09 Urine Color YELLOW 02/18/18 20:09 Urine Clarity CLEAR (CLEAR) 02/18/18 20:09 Urine pH 6.0 (4.6 - 8.0) 02/18/18 20:09 Ur Specific [place] 1.015 (1.005-1.030) 02/18/18 20:09 Urine Protein TRACE mg/dL (NEGATIVE) 02/18/18 20:09 Urine Glucose (UA) NEGATIVE mg/dL (NEGATIVE) 02/18/18 20:09 Urine Ketones NEGATIVE mg/dL (NEGATIVE) 02/18/18 20:09 Urine Blood NEGATIVE (NEGATIVE) 02/18/18 20:09 Urine Nitrate NEGATIVE (NEGATIVE) 02/18/18 20:09 Urine Bilirubin NEGATIVE (NEGATIVE) 02/18/18 20:09 Urine Urobilinogen 0.2 E.U./dL (0.2 - 1.0) 02/18/18 20:09 Ur Leukocyte Esterase NEGATIVE (NEGATIVE) 02/18/18 20:09 Urine RBC 0-2 /hpf (0-5) H 02/18/18 20:09 Urine WBC 0-2 /hpf (0-5) 02/18/18 20:09 Ur Epithelial Cells FEW /lpf (FEW) 02/18/18 20:09 Urine Bacteria FEW /hpf (NONE SEEN) 02/18/18 20:09 Urine Mucus FEW /lpf (FEW) 02/18/18 20:09 - Physical Exam Vitals and I&O: Vital Signs Temp 97.8 F 02/25/18 14:33 Pulse 79 02/25/18 14:33 Resp 20 02/25/18 14:33 BP 116/67 02/25/18 14:33 Pulse Ox 97 02/25/18 14:33 Intake & Output 02/25/18 02/25/18 02/26/18 06:59 18:59 06:59 Intake Total 360 1000 Balance 360 1000 Intake: Oral 360 1000 Other: # Voids 2 4 # Bowel Movements 0 1 Active Medications: Current Medications Acetaminophen (Tylenol) 650 mg PO Q4HR PRN PRN Reason: Mild Pain / Temp above 100 Stop: 04/20/18 11:30 Al Hydrox/Mg Hydrox/Simethicone (Maalox) 30 ml PO Q4HR PRN PRN Reason: GI DISTRESS Stop: 04/20/18 11:30 Albuterol/Ipratropium (Duoneb Neb) 3 ml HHN Q4HRT PRN PRN Reason: Wheezing Stop: 04/20/18 07:38 Donepezil HCl (Aricept) 5 mg PO DAILY HERMILA Stop: 04/27/18 08:59 Lorazepam (Ativan) 0.5 mg PO Q6HR PRN; Protocol PRN Reason: Anxiety Stop: 04/20/18 11:30 Last Admin: 02/24/18 08:54 Dose: 0.5 mg Magnesium Hydroxide (Milk Of Magnesia) 30 ml PO HS PRN PRN Reason: Constipation Stop: 04/20/18 11:30 Multivitamins/Vitamin C (Theragran) 1 tab PO DAILY HERMILA Stop: 04/21/18 08:59 Last Admin: 02/25/18 09:43 Dose: 1 tab Quetiapine Fumarate (Seroquel) 50 mg PO BID HERMILA; Protocol Stop: 04/23/18 08:59 Last Admin: 02/25/18 17:09 Dose: 50 mg Zolpidem Tartrate (Ambien) 5 mg PO HSMR1 PRN PRN Reason: Insomnia Stop: 04/20/18 00:47 Last Admin: 02/19/18 20:24 Dose: 5 mg General: weak, lethargic, demented HEENT: NC/AT, PERRLA, EOMI Neck: Supple, No JVD, No thyromegaly, +2 carotid pulse wo bruit Lungs: wheezing Cardiovascular: RRR, Normal S1, without murmur Abdomen: soft, non-tender, non-distended Extremities: clear Internal Medicine Assmt/Plan - Assessment Assessment: CONNER: slightly worsening; try to avoid nephrotoxic med. S/P fall: fall precaution is being exercised. ALOC: observe. Copd: RT protocol. CHF: stable. Psychosis: monitoring and adjusting meds. h/o HTN: controlled. Nutritional Asmnt/Malnutr-PDOC - Dietary Evaluation Malnutrition Findings (Please click <Entered> for more info): Nutritional Asmnt/Malnutrition Start: 02/22/18 13: 47 Text: Status: Complete Freq: Protocol: Document 02/22/18 13:48 [email or web address] (Rec: 02/22/18 13:54 [email or web address]) Nutritional Asmnt/Malnutrition Patient General Information Nutritional Screening Moderate Risk Diagnosis psychosis Pertinent Medical Hx/Surgical Hx HTN, CHF, asthma/COPD, arthritis, dementia, aortic aneurysm Subjective Information Pt seen on wheelchair by nurse station, confused. Pt stated no concern about current diet/ food. Per EMR, PO intake 100%. Current Diet Order/ Nutrition Support [facility] soft chopped, cardiac, low sodium Pertinent Medications theragran, seroquel Pertinent Labs 02/20 Cr 1.4, glucose 93 02/18 Cr 1.5, glucose 150 Nutritional Hx/Data Height 1.75 m Height (Calculated Centimeters) 175.3 Current Weight (lbs) 90.718 kg Weight (Calculated Kilograms) 90.7 Weight (Calculated Grams) 02242.5 [place] Body Weight 160 Body Mass Index (BMI) 29.5 GI Symptoms GI Symptoms None Last BM 02/21 Difficult in: None Skin Integrity/Comment: delmi malagon 19 Current %PO Good (75-100%) Estimated Nutritional Goals BEE in Kcals: Using Current wt Calories/Kcals/Kg 23-27 Kcals Calculated 2911-2768 Protein: Using Current wt Protein g/k.8 Protein Calculated 73 Fluid: ml 2093-2457ml (1ml/kcal) Nutritional Problem No current Nutrition Prob Problem N/A Malnutrition Alert Is there a minimum of two criteria No selected? Query Text:Check all the applicable criteria. A minimum of two criteria are recommended for diagnosis of either severe or non-severe malnutrition. Malnutrition Related to Morbid Obesity Malnutrition related to morbid obesity No Intervention/Recommendation Comments 1. Continue with mech soft chopped, cardiac diet low sodium diet as ordered. 2. Monitor PO intake, wt, labs and skin integrity 3. F/U as low risk in 7 days Expected Outcomes/Goals Expected Outcomes/Goals 1. PO intake to meet at least 75% of nutritional needs. 2. Wt stability, skin to remain intact, labs to approach WNL.
--- NOTE | 2018-02-25 23:19 | Progress Notes ---
DATE: 02/25/2018 SUBJECTIVE IDENTIFYING DATA: An 82-year-old male brought in here by his daughter for psychotic and agitated behavior. Today on [id number] evaluation, the patient is disengaged, withdrawn, does not participate in interview, just ____ everything is fine and just watch stairs in to ____. When attempting to validate his emotions he becomes more irritable. MEDICATIONS: The patient is on Seroquel 50 mg p.o. b.i.d. PHYSICAL EXAMINATION: Irritable, confused and disorganized. ASSESSMENT AND PLAN: The patient is an 82-year-old male with a history of dementia with behavior disturbances. We will continue Seroquel at this current dosages and add Aricept. [facility]# [id number]
--- NOTE | 2018-02-26 03:00 | Progress Notes ---
DATE: 02/24/2018 SUBJECTIVE: Chart reviewed and the patient interviewed. Also, discussed the patient's condition with the staff and reviewed records and labs. The patient continued to be severely confused. The patient also is still easily irritable and easily agitated and still needs close monitoring. On the other hand, decreased sexual inappropriate behavior and easier to redirect him. The patient also has been compliant with taking his medications with no side effect of medications. ASSESSMENT: The patient is still confused and still need close monitoring. TREATMENT PLAN: We will continue to monitor his behavior and his condition closely. Also, continue to work on his irritability and his inappropriate behavior and continue to follow up. JOB# [id number]
[2018-02-26] MEDS: Multivitamin Tab PO SCH (09:54)
--- NOTE | 2018-02-26 11:58 | Internal Medicine Prog Note ---
Internal Medicine Subjective - Subjective Patient seen and examined:: chart reviewed Patient is:: awake, verbal, in wheelchair, agitated, confused Patient Complaints of:: congestion Per staff patient has:: no adverse event Internal Medicine Objective - Results Result Diagrams: 02/18/18 19:10 02/25/18 06:46 Recent Labs: Laboratory Last Values WBC 7.9 Th/cmm (4.8-10.8) 02/18/18 19:10 RBC 4.91 Mil/cmm (3.80-5.80) 02/18/18 19:10 Hgb 14.2 gm/dL (12-16) 02/18/18 19:10 Hct 43.8 % (41.0-60) 02/18/18 19:10 MCV 89.1 fl (80-99) 02/18/18 19:10 MCH 29.0 pg (27.0-31.0) 02/18/18 19:10 MCHC Differential 32.5 pg (28.0-36.0) 02/18/18 19:10 RDW 12.8 % (11.5-20.0) 02/18/18 19:10 Plt Count 179 Th/cmm (150-400) 02/18/18 19:10 MPV 7.2 fl 02/18/18 19:10 Neutrophils % 74.7 % (40.0-80.0) 02/18/18 19:10 Lymphocytes % 16.0 % (20.0-50.0) L 02/18/18 19:10 Monocytes % 6.4 % (2.0-10.0) 02/18/18 19:10 Eosinophils % 2.2 % (0.0-5.0) 02/18/18 19:10 Basophils % 0.7 % (0.0-2.0) 02/18/18 19:10 PT 9.8 SECONDS (9.5-11.5) 02/18/18 19:10 INR 0.94 (0.5-1.4) 02/18/18 19:10 PTT (Actin FS) 28.7 SECONDS (26.0-38.0) 02/18/18 19:10 Sodium 137 mEq/L (136-145) 02/25/18 06:46 Potassium 4.4 mEq/L (3.5-5.1) 02/25/18 06:46 Chloride 103 mEq/L (98-107) 02/25/18 06:46 Carbon Dioxide 24.5 mEq/L (21.0-31.0) 02/25/18 06:46 Anion Gap 13.9 (7.0-16.0) 02/25/18 06:46 BUN 24 mg/dL (7-25) 02/25/18 06:46 Creatinine 1.5 mg/dL (0.7-1.3) H 02/25/18 06:46 Est GFR ( Amer) TNP 02/25/18 06:46 Est GFR (Non-Af Amer) TNP 02/25/18 06:46 BUN/Creatinine Ratio 16.0 02/25/18 06:46 Glucose 99 mg/dL (70-105) 02/25/18 06:46 POC Glucose 85 MG/DL (70 - 105) 02/25/18 05:51 Calcium 9.8 mg/dL (8.6-10.3) 02/25/18 06:46 Total Bilirubin 0.4 mg/dL (0.3-1.0) 02/18/18 19:10 AST 16 U/L (13-39) 02/18/18 19:10 ALT 14 U/L (7-52) 02/18/18 19:10 Alkaline Phosphatase 79 U/L (34-104) 02/18/18 19:10 Troponin I 0.01 ng/mL (0.01-0.05) 02/18/18 19:10 B-Natriuretic Peptide 6.3 pg/mL (5.0-100.0) 02/20/18 06:00 Total Protein 8.2 gm/dL (6.0-8.3) 02/18/18 19:10 Albumin 3.9 gm/dL (4.2-5.5) L 02/18/18 19:10 Globulin 4.3 gm/dL 02/18/18 19:10 Albumin/Globulin Ratio 0.9 (1.0-1.8) L 02/18/18 19:10 Triglycerides 115 mg/dL (<150) 02/19/18 00:50 Cholesterol 164 mg/dL (<200) 02/19/18 00:50 LDL Cholesterol Direct 133 mg/dL (75-193) 02/19/18 00:50 HDL Cholesterol 35 mg/dL (23-92) 02/19/18 00:50 Carcinoembryonic Ag 1.0 ng/mL (0.0-4.7) 02/19/18 12:58 Prostate Specific Ag 2.5 ng/mL (0.0-4.0) 02/20/18 06:00 TSH 1.24 uIU/ml (0.34-5.60) 02/18/18 19:10 Urine Source CLEAN C 02/18/18 20:09 Urine Color YELLOW 02/18/18 20:09 Urine Clarity CLEAR (CLEAR) 02/18/18 20:09 Urine pH 6.0 (4.6 - 8.0) 02/18/18 20:09 Ur Specific [place] 1.015 (1.005-1.030) 02/18/18 20:09 Urine Protein TRACE mg/dL (NEGATIVE) 02/18/18 20:09 Urine Glucose (UA) NEGATIVE mg/dL (NEGATIVE) 02/18/18 20:09 Urine Ketones NEGATIVE mg/dL (NEGATIVE) 02/18/18 20:09 Urine Blood NEGATIVE (NEGATIVE) 02/18/18 20:09 Urine Nitrate NEGATIVE (NEGATIVE) 02/18/18 20:09 Urine Bilirubin NEGATIVE (NEGATIVE) 02/18/18 20:09 Urine Urobilinogen 0.2 E.U./dL (0.2 - 1.0) 02/18/18 20:09 Ur Leukocyte Esterase NEGATIVE (NEGATIVE) 02/18/18 20:09 Urine RBC 0-2 /hpf (0-5) H 02/18/18 20:09 Urine WBC 0-2 /hpf (0-5) 02/18/18 20:09 Ur Epithelial Cells FEW /lpf (FEW) 02/18/18 20:09 Urine Bacteria FEW /hpf (NONE SEEN) 02/18/18 20:09 Urine Mucus FEW /lpf (FEW) 02/18/18 20:09 - Physical Exam Vitals and I&O: Vital Signs Temp 98 F 02/26/18 06:27 Pulse 79 02/26/18 07:00 Resp 12 02/26/18 07:00 BP 133/92 02/26/18 06:27 Pulse Ox 93 02/26/18 07:00 Intake & Output 02/25/18 02/26/1819 18:59 06:59 18:59 Intake Total 1000 480 Balance 1000 480 Intake: Oral 1000 480 Other: # Voids 4 1 # Bowel Movements 1 Active Medications: Current Medications Acetaminophen (Tylenol) 650 mg PO Q4HR PRN PRN Reason: Mild Pain / Temp above 100 Stop: 04/20/18 11:30 Al Hydrox/Mg Hydrox/Simethicone (Maalox) 30 ml PO Q4HR PRN PRN Reason: GI DISTRESS Stop: 04/20/18 11:30 Albuterol/Ipratropium (Duoneb Neb) 3 ml HHN Q4HRT PRN PRN Reason: Wheezing Stop: 04/20/18 07:38 Donepezil HCl (Aricept) 5 mg PO DAILY HERMILA Stop: 04/27/18 08:59 Last Admin: 02/26/18 09:54 Dose: 5 mg Lorazepam (Ativan) 0.5 mg PO Q6HR PRN; Protocol PRN Reason: Anxiety Stop: 04/20/18 11:30 Last Admin: 02/25/18 23:50 Dose: 0.5 mg Magnesium Hydroxide (Milk Of Magnesia) 30 ml PO HS PRN PRN Reason: Constipation Stop: 04/20/18 11:30 Multivitamins/Vitamin C (Theragran) 1 tab PO DAILY HERMILA Stop: 04/21/18 08:59 Last Admin: 02/26/18 09:54 Dose: 1 tab Quetiapine Fumarate (Seroquel) 50 mg PO BID HERMILA; Protocol Stop: 04/23/18 08:59 Last Admin: 02/26/18 09:54 Dose: 50 mg Zolpidem Tartrate (Ambien) 5 mg PO HSMR1 PRN PRN Reason: Insomnia Stop: 04/20/18 00:47 Last Admin: 02/25/18 20:22 Dose: 5 mg General: weak, lethargic, demented HEENT: NC/AT, PERRLA, EOMI Neck: Supple, No JVD, No thyromegaly, +2 carotid pulse wo bruit Lungs: wheezing Cardiovascular: RRR, Normal S1, without murmur Abdomen: soft, non-tender, non-distended Extremities: clear Internal Medicine Assmt/Plan - Assessment Assessment: ALOC COPD CHF Psychosis CONNER HTN - Plan Plan: as per psych will continue to monitor patient Nutritional Asmnt/Malnutr-PDOC - Dietary Evaluation Malnutrition Findings (Please click <Entered> for more info): Nutritional Asmnt/Malnutrition Start: 02/22/18 13: 47 Text: Status: Complete Freq: Protocol: Document 02/22/18 13:48 LCHENG (Rec: 02/22/18 13:54 [email or web address] [email or web address]) Nutritional Asmnt/Malnutrition Patient General Information Nutritional Screening Moderate Risk Diagnosis psychosis Pertinent Medical Hx/Surgical Hx HTN, CHF, asthma/COPD, arthritis, dementia, aortic aneurysm Subjective Information Pt seen on wheelchair by nurse station, confused. Pt stated no concern about current diet/ food. Per EMR, PO intake 100%. Current Diet Order/ Nutrition Support [facility] soft chopped, cardiac, low sodium Pertinent Medications theragran, seroquel Pertinent Labs 02/20 Cr 1.4, glucose 93 02/18 Cr 1.5, glucose 150 Nutritional Hx/Data Height 1.75 m Height (Calculated Centimeters) 175.3 Current Weight (lbs) 90.718 kg Weight (Calculated Kilograms) 90.7 Weight (Calculated Grams) 02349.5 [place] Body Weight 160 Body Mass Index (BMI) 29.5 GI Symptoms GI Symptoms None Last BM 02/21 Difficult in: None Skin Integrity/Comment: delmi malagon 19 Current %PO Good (75-100%) Estimated Nutritional Goals BEE in Kcals: Using Current wt Calories/Kcals/Kg 23-27 Kcals Calculated 7994-1932 Protein: Using Current wt Protein g/k.8 Protein Calculated 73 Fluid: ml 2093-2457ml (1ml/kcal) Nutritional Problem No current Nutrition Prob Problem N/A Malnutrition Alert Is there a minimum of two criteria No selected? Query Text:Check all the applicable criteria. A minimum of two criteria are recommended for diagnosis of either severe or non-severe malnutrition. Malnutrition Related to Morbid Obesity Malnutrition related to morbid obesity No Intervention/Recommendation Comments 1. Continue with mech soft chopped, cardiac diet low sodium diet as ordered. 2. Monitor PO intake, wt, labs and skin integrity 3. F/U as low risk in 7 days Expected Outcomes/Goals Expected Outcomes/Goals 1. PO intake to meet at least 75% of nutritional needs. 2. Wt stability, skin to remain intact, labs to approach WNL.
--- NOTE | 2018-02-26 18:54 | Progress Notes ---
DATE: 02/26/2018 SUBJECTIVE: The patient was seen and evaluated. The patient's chart reviewed. Covering for Dr. Daley. Today on [id number] evaluation, the patient continues to be very disengaged mood. MENTAL STATUS EXAMINATION: Irritable, confused and disorganized. ASSESSMENT AND PLAN: Minimally interactive, disengaged, poor historian overall. We will continue with primary psychiatrist's treatment plan and goals and medications continue to reach steady state, which includes Aricept 5 mg a day, Seroquel 50 mg p.o. b.i.d. to target the patient's behavior disturbances. JOB# [id number]
--- NOTE | 2018-02-26 20:11 | Internal Medicine Prog Note ---
Internal Medicine Subjective - Subjective Service Date: 02/26/18 Patient seen and examined:: without staff Patient is:: awake, verbal, in wheelchair, agitated, confused Patient Complaints of:: congestion Per staff patient has:: no adverse event Internal Medicine Objective - Results Result Diagrams: 02/18/18 19:10 02/25/18 06:46 Recent Labs: Laboratory Last Values WBC 7.9 Th/cmm (4.8-10.8) 02/18/18 19:10 RBC 4.91 Mil/cmm (3.80-5.80) 02/18/18 19:10 Hgb 14.2 gm/dL (12-16) 02/18/18 19:10 Hct 43.8 % (41.0-60) 02/18/18 19:10 MCV 89.1 fl (80-99) 02/18/18 19:10 MCH 29.0 pg (27.0-31.0) 02/18/18 19:10 MCHC Differential 32.5 pg (28.0-36.0) 02/18/18 19:10 RDW 12.8 % (11.5-20.0) 02/18/18 19:10 Plt Count 179 Th/cmm (150-400) 02/18/18 19:10 MPV 7.2 fl 02/18/18 19:10 Neutrophils % 74.7 % (40.0-80.0) 02/18/18 19:10 Lymphocytes % 16.0 % (20.0-50.0) L 02/18/18 19:10 Monocytes % 6.4 % (2.0-10.0) 02/18/18 19:10 Eosinophils % 2.2 % (0.0-5.0) 02/18/18 19:10 Basophils % 0.7 % (0.0-2.0) 02/18/18 19:10 PT 9.8 SECONDS (9.5-11.5) 02/18/18 19:10 INR 0.94 (0.5-1.4) 02/18/18 19:10 PTT (Actin FS) 28.7 SECONDS (26.0-38.0) 02/18/18 19:10 Sodium 137 mEq/L (136-145) 02/25/18 06:46 Potassium 4.4 mEq/L (3.5-5.1) 02/25/18 06:46 Chloride 103 mEq/L (98-107) 02/25/18 06:46 Carbon Dioxide 24.5 mEq/L (21.0-31.0) 02/25/18 06:46 Anion Gap 13.9 (7.0-16.0) 02/25/18 06:46 BUN 24 mg/dL (7-25) 02/25/18 06:46 Creatinine 1.5 mg/dL (0.7-1.3) H 02/25/18 06:46 Est GFR ( Amer) TNP 02/25/18 06:46 Est GFR (Non-Af Amer) TNP 02/25/18 06:46 BUN/Creatinine Ratio 16.0 02/25/18 06:46 Glucose 99 mg/dL (70-105) 02/25/18 06:46 POC Glucose 85 MG/DL (70 - 105) 02/25/18 05:51 Calcium 9.8 mg/dL (8.6-10.3) 02/25/18 06:46 Total Bilirubin 0.4 mg/dL (0.3-1.0) 02/18/18 19:10 AST 16 U/L (13-39) 02/18/18 19:10 ALT 14 U/L (7-52) 02/18/18 19:10 Alkaline Phosphatase 79 U/L (34-104) 02/18/18 19:10 Troponin I 0.01 ng/mL (0.01-0.05) 02/18/18 19:10 B-Natriuretic Peptide 6.3 pg/mL (5.0-100.0) 02/20/18 06:00 Total Protein 8.2 gm/dL (6.0-8.3) 02/18/18 19:10 Albumin 3.9 gm/dL (4.2-5.5) L 02/18/18 19:10 Globulin 4.3 gm/dL 02/18/18 19:10 Albumin/Globulin Ratio 0.9 (1.0-1.8) L 02/18/18 19:10 Triglycerides 115 mg/dL (<150) 02/19/18 00:50 Cholesterol 164 mg/dL (<200) 02/19/18 00:50 LDL Cholesterol Direct 133 mg/dL (75-193) 02/19/18 00:50 HDL Cholesterol 35 mg/dL (23-92) 02/19/18 00:50 Carcinoembryonic Ag 1.0 ng/mL (0.0-4.7) 02/19/18 12:58 Prostate Specific Ag 2.5 ng/mL (0.0-4.0) 02/20/18 06:00 TSH 1.24 uIU/ml (0.34-5.60) 02/18/18 19:10 Urine Source CLEAN C 02/18/18 20:09 Urine Color YELLOW 02/18/18 20:09 Urine Clarity CLEAR (CLEAR) 02/18/18 20:09 Urine pH 6.0 (4.6 - 8.0) 02/18/18 20:09 Ur Specific [place] 1.015 (1.005-1.030) 02/18/18 20:09 Urine Protein TRACE mg/dL (NEGATIVE) 02/18/18 20:09 Urine Glucose (UA) NEGATIVE mg/dL (NEGATIVE) 02/18/18 20:09 Urine Ketones NEGATIVE mg/dL (NEGATIVE) 02/18/18 20:09 Urine Blood NEGATIVE (NEGATIVE) 02/18/18 20:09 Urine Nitrate NEGATIVE (NEGATIVE) 02/18/18 20:09 Urine Bilirubin NEGATIVE (NEGATIVE) 02/18/18 20:09 Urine Urobilinogen 0.2 E.U./dL (0.2 - 1.0) 02/18/18 20:09 Ur Leukocyte Esterase NEGATIVE (NEGATIVE) 02/18/18 20:09 Urine RBC 0-2 /hpf (0-5) H 02/18/18 20:09 Urine WBC 0-2 /hpf (0-5) 02/18/18 20:09 Ur Epithelial Cells FEW /lpf (FEW) 02/18/18 20:09 Urine Bacteria FEW /hpf (NONE SEEN) 02/18/18 20:09 Urine Mucus FEW /lpf (FEW) 02/18/18 20:09 - Physical Exam Vitals and I&O: Vital Signs Temp 97.9 F 02/26/18 15:26 Pulse 92 02/26/18 15:26 Resp 20 02/26/18 15:26 BP 127/64 02/26/18 15:26 Pulse Ox 92 02/26/18 15:26 Intake & Output 02/26/18 02/26/18 02/27/18 06:59 18:59 06:59 Intake Total 480 Balance 480 Intake: Oral 480 Other: # Voids 1 Active Medications: Current Medications Acetaminophen (Tylenol) 650 mg PO Q4HR PRN PRN Reason: Mild Pain / Temp above 100 Stop: 04/20/18 11:30 Al Hydrox/Mg Hydrox/Simethicone (Maalox) 30 ml PO Q4HR PRN PRN Reason: GI DISTRESS Stop: 04/20/18 11:30 Albuterol/Ipratropium (Duoneb Neb) 3 ml HHN Q4HRT PRN PRN Reason: Wheezing Stop: 04/20/18 07:38 Donepezil HCl (Aricept) 5 mg PO DAILY HERMILA Stop: 04/27/18 08:59 Last Admin: 02/26/18 09:54 Dose: 5 mg Lorazepam (Ativan) 0.5 mg PO Q6HR PRN; Protocol PRN Reason: Anxiety Stop: 04/20/18 11:30 Last Admin: 02/25/18 23:50 Dose: 0.5 mg Magnesium Hydroxide (Milk Of Magnesia) 30 ml PO HS PRN PRN Reason: Constipation Stop: 04/20/18 11:30 Multivitamins/Vitamin C (Theragran) 1 tab PO DAILY HERMILA Stop: 04/21/18 08:59 Last Admin: 02/26/18 09:54 Dose: 1 tab Quetiapine Fumarate (Seroquel) 50 mg PO BID [facility]MILA; Protocol Stop: 04/23/18 08:59 Last Admin: 02/26/18 18:00 Dose: 50 mg Zolpidem Tartrate (Ambien) 5 mg PO HSMR1 PRN PRN Reason: Insomnia Stop: 04/20/18 00:47 Last Admin: 02/25/18 20:22 Dose: 5 mg General: weak, lethargic, demented HEENT: NC/AT, PERRLA, EOMI Neck: Supple, No JVD, No thyromegaly, +2 carotid pulse wo bruit Lungs: wheezing Cardiovascular: RRR, Normal S1, without murmur Abdomen: soft, non-tender, non-distended Extremities: clear Internal Medicine Assmt/Plan - Assessment Assessment: S/P fall: fall precaution is being exercised. ALOC: observe. CONNER: slightly worsening; try to avoid nephrotoxic med. Copd: RT protocol. CHF: stable. Psychosis: monitoring and adjusting meds. h/o HTN: controlled. Nutritional Asmnt/Malnutr-PDOC - Dietary Evaluation Malnutrition Findings (Please click <Entered> for more info): Nutritional Asmnt/Malnutrition Start: 02/22/18 13: 47 Text: Status: Complete Freq: Protocol: Document 02/22/18 13:48 [email or web address] (Rec: 02/22/18 13:54 [email or web address]) Nutritional Asmnt/Malnutrition Patient General Information Nutritional Screening Moderate Risk Diagnosis psychosis Pertinent Medical Hx/Surgical Hx HTN, CHF, asthma/COPD, arthritis, dementia, aortic aneurysm Subjective Information Pt seen on wheelchair by nurse station, confused. Pt stated no concern about current diet/ food. Per EMR, PO intake 100%. Current Diet Order/ Nutrition Support me[facility] soft chopped, cardiac, low sodium Pertinent Medications theragran, seroquel Pertinent Labs 02/20 Cr 1.4, glucose 93 02/18 Cr 1.5, glucose 150 Nutritional Hx/Data Height 1.75 m Height (Calculated Centimeters) 175.3 Current Weight (lbs) 90.718 kg Weight (Calculated Kilograms) 90.7 Weight (Calculated Grams) 23320.5 [place] Body Weight 160 Body Mass Index (BMI) 29.5 GI Symptoms GI Symptoms None Last BM 02/21 Difficult in: None Skin Integrity/Comment: delmi malagon 19 Current %PO Good (75-100%) Estimated Nutritional Goals BEE in Kcals: Using Current wt Calories/Kcals/Kg 23-27 Kcals Calculated 9410-4002 Protein: Using Current wt Protein g/k.8 Protein Calculated 73 Fluid: ml 2093-2457ml (1ml/kcal) Nutritional Problem No current Nutrition Prob Problem N/A Malnutrition Alert Is there a minimum of two criteria No selected? Query Text:Check all the applicable criteria. A minimum of two criteria are recommended for diagnosis of either severe or non-severe malnutrition. Malnutrition Related to Morbid Obesity Malnutrition related to morbid obesity No Intervention/Recommendation Comments 1. Continue with mech soft chopped, cardiac diet low sodium diet as ordered. 2. Monitor PO intake, wt, labs and skin integrity 3. F/U as low risk in 7 days Expected Outcomes/Goals Expected Outcomes/Goals 1. PO intake to meet at least 75% of nutritional needs. 2. Wt stability, skin to remain intact, labs to approach WNL.
[2018-02-27 06:54] LABS: ANION GAP 11.8 (7.0-16.0); BUN - UREA NITROGEN 24 mg/dL (7-25); CALCIUM SERUM 9.2 mg/dL (8.6-10.3); CARBON DIOXIDE 21.1 mEq/L (21.0-31.0); CHLORIDE 108 mEq/L (98-107); CREATININE - SERUM 1.3 mg/dL (0.7-1.3); GLUCOSE 90 mg/dL (70-105); POTASSIUM SERUM 3.9 mEq/L (3.5-5.1); SODIUM SERUM 137 mEq/L (136-145)
[2018-02-27] MEDS: Multivitamin Tab PO SCH (08:27)
--- NOTE | 2018-02-27 12:50 | Internal Medicine Prog Note ---
Internal Medicine Subjective - Subjective Patient seen and examined:: chart reviewed Patient is:: awake, verbal, in wheelchair, agitated, confused, other (no change) Patient Complaints of:: congestion Per staff patient has:: no adverse event Internal Medicine Objective - Results Result Diagrams: 02/18/18 19:10 02/27/18 06:00 Recent Labs: Laboratory Last Values WBC 7.9 Th/cmm (4.8-10.8) 02/18/18 19:10 RBC 4.91 Mil/cmm (3.80-5.80) 02/18/18 19:10 Hgb 14.2 gm/dL (12-16) 02/18/18 19:10 Hct 43.8 % (41.0-60) 02/18/18 19:10 MCV 89.1 fl (80-99) 02/18/18 19:10 MCH 29.0 pg (27.0-31.0) 02/18/18 19:10 MCHC Differential 32.5 pg (28.0-36.0) 02/18/18 19:10 RDW 12.8 % (11.5-20.0) 02/18/18 19:10 Plt Count 179 Th/cmm (150-400) 02/18/18 19:10 MPV 7.2 fl 02/18/18 19:10 Neutrophils % 74.7 % (40.0-80.0) 02/18/18 19:10 Lymphocytes % 16.0 % (20.0-50.0) L 02/18/18 19:10 Monocytes % 6.4 % (2.0-10.0) 02/18/18 19:10 Eosinophils % 2.2 % (0.0-5.0) 02/18/18 19:10 Basophils % 0.7 % (0.0-2.0) 02/18/18 19:10 PT 9.8 SECONDS (9.5-11.5) 02/18/18 19:10 INR 0.94 (0.5-1.4) 02/18/18 19:10 PTT (Actin FS) 28.7 SECONDS (26.0-38.0) 02/18/18 19:10 Sodium 137 mEq/L (136-145) 02/27/18 06:00 Potassium 3.9 mEq/L (3.5-5.1) 02/27/18 06:00 Chloride 108 mEq/L (98-107) H 02/27/18 06:00 Carbon Dioxide 21.1 mEq/L (21.0-31.0) 02/27/18 06:00 Anion Gap 11.8 (7.0-16.0) 02/27/18 06:00 BUN 24 mg/dL (7-25) 02/27/18 06:00 Creatinine 1.3 mg/dL (0.7-1.3) 02/27/18 06:00 Est GFR ( Amer) TNP 02/27/18 06:00 Est GFR (Non-Af Amer) TNP 02/27/18 06:00 BUN/Creatinine Ratio 18.5 02/27/18 06:00 Glucose 90 mg/dL (70-105) 02/27/18 06:00 POC Glucose 85 MG/DL (70 - 105) 02/25/18 05:51 Calcium 9.2 mg/dL (8.6-10.3) 02/27/18 06:00 Total Bilirubin 0.4 mg/dL (0.3-1.0) 02/18/18 19:10 AST 16 U/L (13-39) 02/18/18 19:10 ALT 14 U/L (7-52) 02/18/18 19:10 Alkaline Phosphatase 79 U/L (34-104) 02/18/18 19:10 Troponin I 0.01 ng/mL (0.01-0.05) 02/18/18 19:10 B-Natriuretic Peptide 6.3 pg/mL (5.0-100.0) 02/20/18 06:00 Total Protein 8.2 gm/dL (6.0-8.3) 02/18/18 19:10 Albumin 3.9 gm/dL (4.2-5.5) L 02/18/18 19:10 Globulin 4.3 gm/dL 02/18/18 19:10 Albumin/Globulin Ratio 0.9 (1.0-1.8) L 02/18/18 19:10 Triglycerides 115 mg/dL (<150) 02/19/18 00:50 Cholesterol 164 mg/dL (<200) 02/19/18 00:50 LDL Cholesterol Direct 133 mg/dL (75-193) 02/19/18 00:50 HDL Cholesterol 35 mg/dL (23-92) 02/19/18 00:50 Carcinoembryonic Ag 1.0 ng/mL (0.0-4.7) 02/19/18 12:58 Prostate Specific Ag 2.5 ng/mL (0.0-4.0) 02/20/18 06:00 TSH 1.24 uIU/ml (0.34-5.60) 02/18/18 19:10 Urine Source CLEAN C 02/18/18 20:09 Urine Color YELLOW 02/18/18 20:09 Urine Clarity CLEAR (CLEAR) 02/18/18 20:09 Urine pH 6.0 (4.6 - 8.0) 02/18/18 20:09 Ur Specific [place] 1.015 (1.005-1.030) 02/18/18 20:09 Urine Protein TRACE mg/dL (NEGATIVE) 02/18/18 20:09 Urine Glucose (UA) NEGATIVE mg/dL (NEGATIVE) 02/18/18 20:09 Urine Ketones NEGATIVE mg/dL (NEGATIVE) 02/18/18 20:09 Urine Blood NEGATIVE (NEGATIVE) 02/18/18 20:09 Urine Nitrate NEGATIVE (NEGATIVE) 02/18/18 20:09 Urine Bilirubin NEGATIVE (NEGATIVE) 02/18/18 20:09 Urine Urobilinogen 0.2 E.U./dL (0.2 - 1.0) 02/18/18 20:09 Ur Leukocyte Esterase NEGATIVE (NEGATIVE) 02/18/18 20:09 Urine RBC 0-2 /hpf (0-5) H 02/18/18 20:09 Urine WBC 0-2 /hpf (0-5) 02/18/18 20:09 Ur Epithelial Cells FEW /lpf (FEW) 02/18/18 20:09 Urine Bacteria FEW /hpf (NONE SEEN) 02/18/18 20:09 Urine Mucus FEW /lpf (FEW) 02/18/18 20:09 - Physical Exam Vitals and I&O: Vital Signs Temp 98.5 F 02/27/18 06:18 Pulse 79 02/27/18 07:00 Resp 12 02/27/18 07:00 BP 97/52 02/27/18 06:18 Pulse Ox 92 02/27/18 07:00 Intake & Output 02/26/18 02/27/18 02/27/18 18:59 06:59 18:59 Intake Total 120 Balance 120 Intake: Oral 120 Other: # Voids 3 # Bowel Movements 0 Active Medications: Current Medications Acetaminophen (Tylenol) 650 mg PO Q4HR PRN PRN Reason: Mild Pain / Temp above 100 Stop: 04/20/18 11:30 Al Hydrox/Mg Hydrox/Simethicone (Maalox) 30 ml PO Q4HR PRN PRN Reason: GI DISTRESS Stop: 04/20/18 11:30 Albuterol/Ipratropium (Duoneb Neb) 3 ml HHN Q4HRT PRN PRN Reason: Wheezing Stop: 04/20/18 07:38 Donepezil HCl (Aricept) 5 mg PO DAILY HERMILA Stop: 04/27/18 08:59 Last Admin: 02/27/18 08:27 Dose: 5 mg Magnesium Hydroxide (Milk Of Magnesia) 30 ml PO HS PRN PRN Reason: Constipation Stop: 04/20/18 11:30 Multivitamins/Vitamin C (Theragran) 1 tab PO DAILY [facility] Stop: 04/21/18 08:59 Last Admin: 02/27/18 08:27 Dose: 1 tab Quetiapine Fumarate (Seroquel) 50 mg PO BID [facility]; Protocol Stop: 04/23/18 08:59 Last Admin: 02/27/18 08:26 Dose: 50 mg Zolpidem Tartrate (Ambien) 5 mg PO HSMR1 PRN PRN Reason: Insomnia Stop: 04/20/18 00:47 Last Admin: 02/25/18 20:22 Dose: 5 mg General: weak, lethargic, demented HEENT: NC/AT, PERRLA, EOMI Neck: Supple, No JVD, No thyromegaly, +2 carotid pulse wo bruit Lungs: wheezing Cardiovascular: RRR, Normal S1, without murmur Abdomen: soft, non-tender, non-distended Extremities: clear Internal Medicine Assmt/Plan - Assessment Assessment: ALOC COPD CHF Psychosis CONNER HTN - Plan Plan: as per psych will continue to monitor patient Nutritional Asmnt/Malnutr-PDOC - Dietary Evaluation Malnutrition Findings (Please click <Entered> for more info): Nutritional Asmnt/Malnutrition Start: 02/22/18 13: 47 Text: Status: Complete Freq: Protocol: Document 02/22/18 13:48 LCHENG (Rec: 02/22/18 13:54 [email or web address]) Nutritional Asmnt/Malnutrition Patient General Information Nutritional Screening Moderate Risk Diagnosis psychosis Pertinent Medical Hx/Surgical Hx HTN, CHF, asthma/COPD, arthritis, dementia, aortic aneurysm Subjective Information Pt seen on wheelchair by nurse station, confused. Pt stated no concern about current diet/ food. Per EMR, PO intake 100%. Current Diet Order/ Nutrition Support [facility] soft chopped, cardiac, low sodium Pertinent Medications theragran, seroquel Pertinent Labs 02/20 Cr 1.4, glucose 93 02/18 Cr 1.5, glucose 150 Nutritional Hx/Data Height 1.75 m Height (Calculated Centimeters) 175.3 Current Weight (lbs) 90.718 kg Weight (Calculated Kilograms) 90.7 Weight (Calculated Grams) 83843.5 [place] Body Weight 160 Body Mass Index (BMI) 29.5 GI Symptoms GI Symptoms None Last BM 02/21 Difficult in: None Skin Integrity/Comment: delmi malagon 19 Current %PO Good (75-100%) Estimated Nutritional Goals BEE in Kcals: Using Current wt Calories/Kcals/Kg 23-27 Kcals Calculated 6802-9106 Protein: Using Current wt Protein g/k.8 Protein Calculated 73 Fluid: ml 2093-2457ml (1ml/kcal) Nutritional Problem No current Nutrition Prob Problem N/A Malnutrition Alert Is there a minimum of two criteria No selected? Query Text:Check all the applicable criteria. A minimum of two criteria are recommended for diagnosis of either severe or non-severe malnutrition. Malnutrition Related to Morbid Obesity Malnutrition related to morbid obesity No Intervention/Recommendation Comments 1. Continue with [facility] soft chopped, cardiac diet low sodium diet as ordered. 2. Monitor PO intake, wt, labs and skin integrity 3. F/U as low risk in 7 days Expected Outcomes/Goals Expected Outcomes/Goals 1. PO intake to meet at least 75% of nutritional needs. 2. Wt stability, skin to remain intact, labs to approach WNL.
--- NOTE | 2018-02-27 22:56 | Internal Medicine Prog Note ---
Internal Medicine Subjective - Subjective Service Date: 02/27/18 Patient seen and examined:: without staff Patient is:: awake, verbal, in wheelchair, agitated, confused, other (no change) Patient Complaints of:: congestion Per staff patient has:: no adverse event Internal Medicine Objective - Results Result Diagrams: 02/18/18 19:10 02/27/18 06:00 Recent Labs: Laboratory Last Values WBC 7.9 Th/cmm (4.8-10.8) 02/18/18 19:10 RBC 4.91 Mil/cmm (3.80-5.80) 02/18/18 19:10 Hgb 14.2 gm/dL (12-16) 02/18/18 19:10 Hct 43.8 % (41.0-60) 02/18/18 19:10 MCV 89.1 fl (80-99) 02/18/18 19:10 MCH 29.0 pg (27.0-31.0) 02/18/18 19:10 MCHC Differential 32.5 pg (28.0-36.0) 02/18/18 19:10 RDW 12.8 % (11.5-20.0) 02/18/18 19:10 Plt Count 179 Th/cmm (150-400) 02/18/18 19:10 MPV 7.2 fl 02/18/18 19:10 Neutrophils % 74.7 % (40.0-80.0) 02/18/18 19:10 Lymphocytes % 16.0 % (20.0-50.0) L 02/18/18 19:10 Monocytes % 6.4 % (2.0-10.0) 02/18/18 19:10 Eosinophils % 2.2 % (0.0-5.0) 02/18/18 19:10 Basophils % 0.7 % (0.0-2.0) 02/18/18 19:10 PT 9.8 SECONDS (9.5-11.5) 02/18/18 19:10 INR 0.94 (0.5-1.4) 02/18/18 19:10 PTT (Actin FS) 28.7 SECONDS (26.0-38.0) 02/18/18 19:10 Sodium 137 mEq/L (136-145) 02/27/18 06:00 Potassium 3.9 mEq/L (3.5-5.1) 02/27/18 06:00 Chloride 108 mEq/L (98-107) H 02/27/18 06:00 Carbon Dioxide 21.1 mEq/L (21.0-31.0) 02/27/18 06:00 Anion Gap 11.8 (7.0-16.0) 02/27/18 06:00 BUN 24 mg/dL (7-25) 02/27/18 06:00 Creatinine 1.3 mg/dL (0.7-1.3) 02/27/18 06:00 Est GFR ( Amer) TNP 02/27/18 06:00 Est GFR (Non-Af Amer) TNP 02/27/18 06:00 BUN/Creatinine Ratio 18.5 02/27/18 06:00 Glucose 90 mg/dL (70-105) 02/27/18 06:00 POC Glucose 85 MG/DL (70 - 105) 02/25/18 05:51 Calcium 9.2 mg/dL (8.6-10.3) 02/27/18 06:00 Total Bilirubin 0.4 mg/dL (0.3-1.0) 02/18/18 19:10 AST 16 U/L (13-39) 02/18/18 19:10 ALT 14 U/L (7-52) 02/18/18 19:10 Alkaline Phosphatase 79 U/L (34-104) 02/18/18 19:10 Troponin I 0.01 ng/mL (0.01-0.05) 02/18/18 19:10 B-Natriuretic Peptide 6.3 pg/mL (5.0-100.0) 02/20/18 06:00 Total Protein 8.2 gm/dL (6.0-8.3) 02/18/18 19:10 Albumin 3.9 gm/dL (4.2-5.5) L 02/18/18 19:10 Globulin 4.3 gm/dL 02/18/18 19:10 Albumin/Globulin Ratio 0.9 (1.0-1.8) L 02/18/18 19:10 Triglycerides 115 mg/dL (<150) 02/19/18 00:50 Cholesterol 164 mg/dL (<200) 02/19/18 00:50 LDL Cholesterol Direct 133 mg/dL (75-193) 02/19/18 00:50 HDL Cholesterol 35 mg/dL (23-92) 02/19/18 00:50 Carcinoembryonic Ag 1.0 ng/mL (0.0-4.7) 02/19/18 12:58 Prostate Specific Ag 2.5 ng/mL (0.0-4.0) 02/20/18 06:00 TSH 1.24 uIU/ml (0.34-5.60) 02/18/18 19:10 Urine Source CLEAN C 02/18/18 20:09 Urine Color YELLOW 02/18/18 20:09 Urine Clarity CLEAR (CLEAR) 02/18/18 20:09 Urine pH 6.0 (4.6 - 8.0) 02/18/18 20:09 Ur Specific [place] 1.015 (1.005-1.030) 02/18/18 20:09 Urine Protein TRACE mg/dL (NEGATIVE) 02/18/18 20:09 Urine Glucose (UA) NEGATIVE mg/dL (NEGATIVE) 02/18/18 20:09 Urine Ketones NEGATIVE mg/dL (NEGATIVE) 02/18/18 20:09 Urine Blood NEGATIVE (NEGATIVE) 02/18/18 20:09 Urine Nitrate NEGATIVE (NEGATIVE) 02/18/18 20:09 Urine Bilirubin NEGATIVE (NEGATIVE) 02/18/18 20:09 Urine Urobilinogen 0.2 E.U./dL (0.2 - 1.0) 02/18/18 20:09 Ur Leukocyte Esterase NEGATIVE (NEGATIVE) 02/18/18 20:09 Urine RBC 0-2 /hpf (0-5) H 02/18/18 20:09 Urine WBC 0-2 /hpf (0-5) 02/18/18 20:09 Ur Epithelial Cells FEW /lpf (FEW) 02/18/18 20:09 Urine Bacteria FEW /hpf (NONE SEEN) 02/18/18 20:09 Urine Mucus FEW /lpf (FEW) 02/18/18 20:09 - Physical Exam Vitals and I&O: Vital Signs Temp 98.7 F 02/27/18 20:19 Pulse 88 02/27/18 20:48 Resp 20 02/27/18 20:48 BP 121/67 02/27/18 20:19 Pulse Ox 96 02/27/18 20:48 Intake & Output 02/27/18 02/27/18 02/28/18 06:59 18:59 06:59 Intake Total 120 120 Balance 120 120 Intake: Oral 120 120 Other: # Voids 3 2 3 # Bowel Movements 0 0 0 Active Medications: Current Medications Acetaminophen (Tylenol) 650 mg PO Q4HR PRN PRN Reason: Mild Pain / Temp above 100 Stop: 04/20/18 11:30 Al Hydrox/Mg Hydrox/Simethicone (Maalox) 30 ml PO Q4HR PRN PRN Reason: GI DISTRESS Stop: 04/20/18 11:30 Albuterol/Ipratropium (Duoneb Neb) 3 ml HHN Q4HRT PRN PRN Reason: Wheezing Stop: 04/20/18 07:38 Donepezil HCl (Aricept) 5 mg PO DAILY [facility] Stop: 04/27/18 08:59 Last Admin: 02/27/18 08:27 Dose: 5 mg Magnesium Hydroxide (Milk Of Magnesia) 30 ml PO HS PRN PRN Reason: Constipation Stop: 04/20/18 11:30 Multivitamins/Vitamin C (Theragran) 1 tab PO DAILY HERMILA Stop: 04/21/18 08:59 Last Admin: 02/27/18 08:27 Dose: 1 tab Quetiapine Fumarate (Seroquel) 50 mg PO BID [facility]; Protocol Stop: 04/23/18 08:59 Last Admin: 02/27/18 17:43 Dose: 50 mg Zolpidem Tartrate (Ambien) 5 mg PO HSMR1 PRN PRN Reason: Insomnia Stop: 04/20/18 00:47 Last Admin: 02/25/18 20:22 Dose: 5 mg General: weak, lethargic, demented HEENT: NC/AT, PERRLA, EOMI Neck: Supple, No JVD, No thyromegaly, +2 carotid pulse wo bruit Lungs: wheezing Cardiovascular: RRR, Normal S1, without murmur Abdomen: soft, non-tender, non-distended Extremities: clear Internal Medicine Assmt/Plan - Assessment Assessment: Weakness: fall precaution is being exercised. DC planning tomorrow: d/w daughter. S/P fall: fall precaution is being exercised. ALOC: observe. CONNER: slightly worsening; try to avoid nephrotoxic med. Copd: RT protocol. CHF: stable. Psychosis: monitoring and adjusting meds. h/o HTN: controlled. Nutritional Asmnt/Malnutr-PDOC - Dietary Evaluation Malnutrition Findings (Please click <Entered> for more info): Nutritional Asmnt/Malnutrition Start: 02/22/18 13: 47 Text: Status: Complete Freq: Protocol: Document 02/22/18 13:48 [email or web address] (Rec: 02/22/18 13:54 [email or web address]) Nutritional Asmnt/Malnutrition Patient General Information Nutritional Screening Moderate Risk Diagnosis psychosis Pertinent Medical Hx/Surgical Hx HTN, CHF, asthma/COPD, arthritis, dementia, aortic aneurysm Subjective Information Pt seen on wheelchair by nurse station, confused. Pt stated no concern about current diet/ food. Per EMR, PO intake 100%. Current Diet Order/ Nutrition Support [facility] soft chopped, cardiac, low sodium Pertinent Medications theragran, seroquel Pertinent Labs 02/20 Cr 1.4, glucose 93 02/18 Cr 1.5, glucose 150 Nutritional Hx/Data Height 1.75 m Height (Calculated Centimeters) 175.3 Current Weight (lbs) 90.718 kg Weight (Calculated Kilograms) 90.7 Weight (Calculated Grams) 96660.5 Trosper Body Weight 160 Body Mass Index (BMI) 29.5 GI Symptoms GI Symptoms None Last BM 02/21 Difficult in: None Skin Integrity/Comment: delmi malagon 19 Current %PO Good (75-100%) Estimated Nutritional Goals BEE in Kcals: Using Current wt Calories/Kcals/Kg 23-27 Kcals Calculated 4119-3602 Protein: Using Current wt Protein g/k.8 Protein Calculated 73 Fluid: ml 2093-2457ml (1ml/kcal) Nutritional Problem No current Nutrition Prob Problem N/A Malnutrition Alert Is there a minimum of two criteria No selected? Query Text:Check all the applicable criteria. A minimum of two criteria are recommended for diagnosis of either severe or non-severe malnutrition. Malnutrition Related to Morbid Obesity Malnutrition related to morbid obesity No Intervention/Recommendation Comments 1. Continue with [facility] soft chopped, cardiac diet low sodium diet as ordered. 2. Monitor PO intake, wt, labs and skin integrity 3. F/U as low risk in 7 days Expected Outcomes/Goals Expected Outcomes/Goals 1. PO intake to meet at least 75% of nutritional needs. 2. Wt stability, skin to remain intact, labs to approach WNL.
--- NOTE | 2018-02-28 03:58 | Progress Notes ---
DATE: 02/27/2018 PSYCHIATRIC PROGRESS NOTE SUBJECTIVE: Chart reviewed and the patient interviewed. Also discussed the patient's condition with the staff and reviewed records and labs. The patient is still in irritable mood and he is still confused. The patient also still needs lots of redirections. He also is still forgetful and he is still unable to follow directions because of his forgetfulness. He also is showing improvement in the area that he has been taking off his clothes. Also, he has been compliant with taking Seroquel and Aricept with no side effect. ASSESSMENT: The patient is still confused and considered to be gravely disabled. TREATMENT PLAN: We will continue to monitor behavior and continue to work on discharge plans and placement issue and will continue to follow up. JOB# [id number]
[2018-02-28 07:44] LABS: % BASOPHILS 0.8 % (0.0-2.0); % EOSINOPHILS 2.2 % (0.0-5.0); % LYMPHOCYTES 21.5 % (20.0-50.0); % MONOCYTES 8.2 % (2.0-10.0); % NEUTROPHILS 67.3 % (40.0-80.0); BASOPHILE ABSOLUTE 0.1 Th/cumm (0-0.2); EOSINOPHILE ABSOLUTE 0.2 Th/cmm (0.1-0.4); HEMATOCRIT 41.1 % (41.0-60); HEMOGLOBIN 13.5 gm/dL (12-16); LYMPHOCYTE ABSOLUTE 1.8 Th/cmm (1.5-3.0); MEAN CELL VOLUME 89.7 fl (80-99); MEAN CORPUSCULAR HEMOGLOBIN 29.4 pg (27.0-31.0); MEAN CORPUSCULAR HGB CONC 32.8 pg (28.0-36.0); MEAN PLATELET VOLUME 6.9 fl; MONOCYTE ABSOLUTE 0.7 Th/cmm (0.3-1.0); NEUTROPHILE ABSOLUTE 5.6 Th/cmm (1.8-8.0); PLATELET COUNT 201 Th/cmm (150-400); RED BLOOD COUNT 4.58 Mil/cmm (3.80-5.80); RED CELL DISTRIBUTION WIDTH 13.2 % (11.5-20.0); WHITE BLOOD COUNT 8.4 Th/cmm (4.8-10.8)
[2018-02-28 08:06] LABS: ALBUMIN 3.7 gm/dL (4.2-5.5); ALKALINE PHOSPHATASE 73 U/L (34-104); ANION GAP 12.1 (7.0-16.0); BILIRUBIN,TOTAL 0.4 mg/dL (0.3-1.0); BUN - UREA NITROGEN 28 mg/dL (7-25); CALCIUM SERUM 9.3 mg/dL (8.6-10.3); CARBON DIOXIDE 21.8 mEq/L (21.0-31.0); CHLORIDE 108 mEq/L (98-107); CREATININE - SERUM 1.6 mg/dL (0.7-1.3); GLUCOSE 95 mg/dL (70-105); POTASSIUM SERUM 3.9 mEq/L (3.5-5.1); SGOT 24 U/L (13-39); SGPT/ALT 16 U/L (7-52); SODIUM SERUM 138 mEq/L (136-145); TOTAL PROTEIN,SERUM 7.5 gm/dL (6.0-8.3)
[2018-02-28] MEDS: Multivitamin Tab PO SCH (09:58)
--- NOTE | 2018-02-28 10:41 | Diagnostic Imaging Report ---
Ultrasound abdomen HISTORY: Right upper quadrant pain COMPARISON: None Technique: Sonography of the abdomen was performed in multiple planes. FINDINGS: Exam is limited due to bowel gas and body habitus The liver demonstrates normal. The liver margins are not well-defined however no evidence of focal lesions. The liver measures 14.7 cm. Gallstones are noted. The gallbladder wall measures 3 mm. The common bile duct measures 4 mm. No pericholecystic fluid. Evaluation of the pancreas is limited due to bowel gas. The right kidney measures 9.7 x 4.5 cm. There is a 3.9 x 3.9 cm cyst at the upper pole. No hydronephrosis. The left kidney measures 9.9 x 4.9 cm. There is a 3.7 x 3.5 cm cyst of the lower pole. No hydronephrosis. The spleen measures 12.2 cm. IMPRESSION: Cholelithiasis. Borderline prominent gallbladder wall is noted. No pericholecystic fluid. If indicated nucleosis and HIDA scan may be obtained for further assessment No evidence of common bile duct dilatation. Bilateral renal cysts. No hydronephrosis.
--- NOTE | 2018-02-28 22:59 | Discharge Summary ---
DATE OF DISCHARGE: 02/28/2018 FINAL DIAGNOSIS AND PRIMARY DIAGNOSIS: Unspecified psychosis. SECONDARY DIAGNOSIS: Dementia, moderate to severe, with psychotic features. REASON FOR HOSPITALIZATION: The patient was admitted to the hospital because of confusion and agitation and the patient was brought into the hospital by his daughter because of increased agitation with his dementia and also the patient was confused. HOSPITAL COURSE: The patient was extremely irritable and agitated. The patient also was confused and needed redirections. The patient at times was getting out with topless and also was asking a female staff for sexual favors, thus he was confused. At the same time, the patient started on Seroquel and the dose adjusted to 50 mg twice a day that helped the patient to stay calm and less agitated and less irritable. The patient was arranged to be discharged and the daughter wanted the patient to go to [facility]. At the same time, most questionable was some medical issues and Dr. Mitchell wanted the patient to go to medical floor to continue some ____ and have CAT scan of the abdomen. AFTER DISCHARGE PLANS: The patient will go to [facility] with plans for outpatient treatment there. EXPECTED OUTCOME AFTER DISCHARGE: Fair if the patient continues to take his psychotropic medications and follow up with discharge plans. JOB# [id number]
== END 2018-02-28 12:40 | DRG 885 ==
LOC: ER 18:31 → UNDOADMIN 20:39 → GERO 20:39
PROVIDERS: ADMIT Psychiatry & Neurology Psychiatry; ATTEND Psychiatry & Neurology Psychiatry
DX: F23 Brief psychotic disorder (principal); N17.9 Acute kidney failure, unspecified; G93.41 Metabolic encephalopathy; I13.0 Hypertensive heart and chronic kidney disease with heart failure and stage 1 through stage 4 chronic kidney disease, or unspecified chronic kidney disease; F03.91 Unspecified dementia, unspecified severity, with behavioral disturbance; W18.30XA Fall on same level, unspecified, initial encounter; J44.9 Chronic obstructive pulmonary disease, unspecified; I50.9 Heart failure, unspecified; N18.1 Chronic kidney disease, stage 1; M19.90 Unspecified osteoarthritis, unspecified site; Y93.89 Activity, other specified; Y92.89 Other specified places as the place of occurrence of the external cause; Y99.8 Other external cause status
CPT/HCPCS: 36415-UA; 70450-TC; 71045-TC; 76700-TC; 80048-TC; 80053-TC; 80061-TC; 81001-TC; 82378-90; 82948-90; 83036-90; 83880-TC; 84153-90; 84443-TC; 84484-TC; 85025-TC; 85610-TC; 85730-TC; 93005; 94760; G0410; Z7610